=== PATIENT | female | born 1990 | race Caucasian/White ===

== ENCOUNTER 2025-06-20 17:53 | Emergency (ER) | payer OTHER, SELFPAY ==
--- OUTSIDE RECORDS SUMMARY | 2005-06-22 15:23 | XMS_ITS | Encounter Summary ---
Author Organization [facility] Address [address] [place] [address] Care Team Providers Care Bag Machine Operator Helper Name Role Phone Unavailable Primary Care Provider Unavailabl e Encounter Details Date Type Department Care Team (Late st Contact Info) Description 06/22/2005 15:23 EDT [place] [facility] [place] [address] [place] [address] Calrissa Levin PA-C [address] [place] [phone] Social History Tobacco Use Types Packs/Day Years Used Date Smoking Tobacco: Never Smokeless Tobacco: Never Alcohol Use Standard Drinks/Week Comments Yes 0 (1 standard drink = 0.6 oz pur e alcohol) rare Humiliation, Afraid, Rape, and Kick questionnair e Answer Date Recorded Within the last year, have y ou been afraid of your partner or ex-partner? No 02/03/2021 Within the last year, have y ou been humiliated or emotionally abused in other ways by your partner or ex-partner? Patient declined 02/03/2021 Within the last year, have y ou been kicked, hit, slapped, or otherwise physically hurt by your partner or ex-partner? No 02/03/2021 Within the last year, have y ou been raped or forced to have any kind of sexual activity by your partner or ex-partner? No 02/03/2021 AUDIT-C Answer Date Recorded Q1: How often do you have a drink containing alc ohol? 2-4 times a month 02/03/2021 Q2: How many drinks containi ng alcohol do you have on a typical day when you are drinking? 1 or 2 02/03/2021 Q3: How often do you have si x or more drinks on one occasion? Never 02/03/2021 Overall Financial Resource Strain (CARDIA) Answe r Date Recorded How hard is it for you to pa y for the very basics like food, housing, medical care, and heating? Not hard at all 04/09/2023 PHQ-2 Answer Date Recorded PHQ-2 SUBTOTAL 0 04/09/2023 Exercise Vital Sign Answer Date Recorde d On average, how many days pe r week do you engage in moderate to strenuous exercise (like a brisk walk)? 2 days 02/03/2021 On average, how many minutes do you engage in exercise at this level? 30 min 02/03/2021 Hunger Vital Sign Answer Date Recorded Within the past 12 months, y ou worried that your food would run out before you got the money to buy more. Never true 04/09/20 23 Within the past 12 months, t he food you bought just didn't last and you didn't have money to get more. Never true 04/09/2023 PRAPARE - Transportation Answer Date Re corded In the past 12 months, has l ack of transportation kept you from medical appointments or from getting medications? No 03/20 In the past 12 months, has l ack of transportation kept you from meetings, work, or from getting things needed for daily living? No 04/09/2023 Housing Stability Vital Sign Answer Raciel e Recorded In the last 12 months, was t here a time when you were not able to pay the mortgage or rent on time? No 04/09/2023 In the last 12 months, how many places have you lived? 1 04/09/2023 In the last 12 months, was t here a time when you did not have a steady place to sleep or slept in a detention (including now)? No 04/09/2023 Interpersonal Safety Answer Date Record ed How often does anyone, romina grier family, hit, punch or physically hurt you? Never 04/09/2023 How often does anyone, inclu ding family, insult, scream, curse or threaten to hurt you? Never 04/09/2023 Education Answer Date Recorded What is the highest level of school you have completed or the highest degree you have received? Master's degree (e.g., MA, MS, Candice, MEd, FOURDRINIER TENDER, KI) 02/03/2021 Comments No Sex and Gender Information Value Date Recorded Sex Assigned at Female 10/14/2019 20:36 EST Legal Sex Female 17:55 EST Gender Identity Female 10/12/2019 9:28 EST Sexual Orientation Straight 10/14/2019 20 :36 EST Occupation Industry Job Start Date Job End Date Not on file Not on file Not on file Not on file COVID-19 Exposure Response Date Recorded In the last month, have you been in contact with someone who was confirmed or suspected to have Coronavirus / COVID-19? No / Unsure 04/09/2020 11:20 EDT documented as of this encounter Functional Status documented as of this encounter Plan of Treatment Upcoming Encounters Date Type Department Care Team (Late st Contact Info) Description 10/24/2025 15:15 EST Office Visit [address] [address] Leigh Almonte MD [address] [place] [phone] 04/10/2026 15:45 EDT Office Visit [address] [address] Leigh Almonte MD [address] [place] [phone] documented as of this encounter Goals Goal Patient Goal Type Associated Problems Recent Progress Patient-Stated? Author Healthy Eating General Yes Ewelina Gray, RD Note: Healthy Eating Goal: Consume 4-6 small meals each day. Confidence level (1= Not very confident; 10 = Very confident): 8 Barriers: None documented as of this encounter Visit Diagnoses Not on filedocumented in this encounter
--- OUTSIDE RECORDS SUMMARY | 2006-01-10 14:36 | XMS_ITS | Encounter Summary ---
Author Organization [facility] Address [address] [place] [address] Care Team Providers Care Senior Administrator Support Name Role Phone Unavailable Primary Care Provider Unavailabl e Encounter Details Date Type Department Care Team (Late st Contact Info) Description 01/10/2006 14:36 EDT Hospital Encounter [facility] [address] [place] [address] Mike Means MD Social History Tobacco Use Types Packs/Day Years [...] place to sleep or slept in a care home (including now)? No 04/09/2023 Interpersonal Safety Answer Date Record ed How often does anyone, romina grier family, hit, punch or physically hurt you? Never 04/09/2023 How often does anyone, romina grier family, insult, scream, curse or threaten to hurt you? Never 04/09/2023 Education Answer Date Recorded What is the highest level of school you have completed or the highest degree you have received? Master's degree (e.g., MA, MS, Candice, MEd, ASPHALT LAYER, KI) 02/03/2021 Comments No Sex and Gender [...] Info) Description 10/24/2025 15:15 EST Office Visit [facility] [address] [place] [address] Leigh Almonte MD [address] [place] [phone] 04/10/2026 15:45 EDT Office Visit [facility] [address] [place] [address] Leigh Almonte MD [address] [place] [phone] documented as of this encounter Goals [...]
--- OUTSIDE RECORDS SUMMARY | 2006-06-07 15:36 | XMS_ITS | Encounter Summary ---
Author Organization [facility] Address [address] [place] [address] Care Team Providers Care Chemical Analyst Name Role Phone Unavailable Primary Care Provider Unavailabl e Encounter Details Date Type Department Care Team (Late st Contact Info) Description 06/07/2006 15:36 EDT Hospital Encounter [address] [address] Samuel Armstrong MD [address] [place] [phone] Anabel Barakat MD [address] [place], [place] [address] Social History Tobacco Use Types Packs/Day Years [...] place to sleep or slept in a assisted (including now)? No 04/09/2023 Interpersonal Safety Answer Date Record ed How often does anyone, inclu marvel family, hit, punch or physically hurt you? Never 04/09/2023 How often does anyone, inclu marvel family, insult, scream, curse or threaten to hurt you? Never 04/09/2023 Education Answer Date Recorded What is the highest level of school you have completed or the highest degree you have received? Master's degree (e.g., MA, MS, Candice, MEd, BLUEPRINT READER, KI) 02/03/2021 Comments No Sex and Gender [...] Info) Description 10/24/2025 15:15 EST Office Visit [facility] [address] [place] [address] Leigh Almonte MD [address] [place] [phone] 04/10/2026 15:45 EDT Office Visit [address] [address] Leigh Almonte MD [address] [place] [phone] documented as of this encounter Goals Goal Patient Goal Type Associated Problems Recent Progress Patient-Stated? Author Healthy Eating General Yes Ewelina Gray, RD Note: Healthy Eating Goal: Consume 4-6 small meals each day. Confidence level (1= Not very confident; 10 = Very confident): 8 Barriers: None documented as of this encounter Procedures Procedure Name Priority Date/Time Associated Diagnosis Comments COMPLETE BLOOD COUNT AND DIFFERENTIAL Routine 06/07/2006 16:59 EDT ALT Routine 06/07/2006 16:59 EDT AST Routine 06/07/2006 16:59 EDT TSH Routine 06/07/2006 16:59 EDT documented in this encounter Results * TSH (06/07/2006 16:59 EDT) Pathologist [facility] TSH 0.51 0.35 - 5.00 uIU/mL [facility] 06/07/2006 16:5 9 EDT 06/07/2006 17:09 EDT us Samuel Armstrong MD CHEMISTRY & BLOOD GAS OR DERABLES Final Result [facility] [address] [place] [address] * HEMAGRAM AND DIFFERENTIAL (06/07/2006 16:59 EDT) Pathologist [facility] WBC 7.52 4.5 - 13.0 K/cmm [facility] RBC 4.59 4.10 - 5.10 M/cmm [facility] Hemoglobin 14.4 12.0 - 16.0 gm/dl [facility] HCT 41.5 36.0 - 46.0 % [facility] MCV 91 78 - 102 fl [facility] MCH 31.4 pg [facility] MCHC 34.8 gm/dl [facility] PLT 277 156 - 312 K/cmm [facility] RDW-CV 11.5 % [facility] Comment:Performed at [facility], [place], [place] % Neutrophils 55.7 % [facility] % Lymphocytes 35.8 % [facility] % Monocytes 5.7 % [facility] % Eosinophils 1.6 % [facility] % Basophils 1.2 % [facility] ABS Neutrophils 4.18 K/cmm [facility] ABS Lymphs 2.69 K/cmm [facility] ABS Monocytes 0.43 K/cmm [facility] Eosinophils 0.12 K/cmm [facility] ABS Basophils 0.09 K/cmm [facility] Type of Diff: Automated [facility] 06/07/2006 16:5 9 EDT 06/07/2006 17:09 EDT us Samuel Armstrong MD PACKAGES & DNA PROBE ORD ERABLES Final Result Performing Organization Address City/[facility]/ZIP Co de Phone Number [facility] [address] [place] [address] * AST (06/07/2006 16:59 EDT) AST 19 16 - 38 U/L [facility] Comment:Performed at [facility] [employer] [facility], [place], [place] 06/07/2006 16:5 9 EDT 06/07/2006 17:09 EDT us Samuel Armstrong MD CHEMISTRY & BLOOD GAS OR DERABLES Final Result Performing Organization Address [facility] Co de Phone Number [facility] [address] [place] [address] * ALT (06/07/2006 16:59 EDT) ALT 21 5 - 30 U/L [facility] Comment:Performed at [facility] [place] 06/07/2006 16:5 9 EDT 06/07/2006 17:09 EDT us Samuel Armstrong MD CHEMISTRY & BLOOD GAS OR DERABLES Final Result Performing Organization Address [facility]/ZIP Co de Phone Number [facility] [address] [place] [address] documented in this encounter Visit Diagnoses Not on filedocumented in this encounter
--- OUTSIDE RECORDS SUMMARY | 2006-06-10 15:54 | XMS_ITS | Encounter Summary ---
Author Organization [facility] Address [address] [place] [address] Care Team Providers Care American Sign Language Interpreter Name Role Phone Unavailable Primary Care Provider Unavailabl e Encounter Details Date Type Department Care Team (Late st Contact Info) Description 06/10/2006 15:54 EDT Hospital Encounter [facility] [place] [address] [place], [place] [address] Oseas Moise MD [address] [facility] [address] [place] [phone] Social History Tobacco Use Types Packs/Day Years [...] place to sleep or slept in a snf (including now)? No 04/09/2023 Interpersonal Safety Answer [...] Master's degree (e.g., MA, MS, Candice, MEd, PACKAGING DESIGNER, KI) 02/03/2021 Comments No Sex and Gender [...] Info) Description 10/24/2025 15:15 EST Office Visit [address] [address] Leigh Almonte MD [address] [place] [phone] 04/10/2026 15:45 EDT Office Visit [address] [address] Leigh Almonte MD [address] [place] [phone] documented as of this encounter Goals Goal Patient Goal Type Associated Problems Recent Progress Patient-Stated? Author Healthy Eating General Yes Ewelina Gray RD Note: Healthy Eating Goal: Consume 4-6 small meals each day. Confidence level (1= Not very confident; 10 = Very confident): 8 Barriers: None documented as of this encounter Visit Diagnoses Not on filedocumented in this encounter
--- OUTSIDE RECORDS SUMMARY | 2006-07-07 10:09 | XMS_ITS | Encounter Summary ---
Author Organization [facility] Address [address] [place] [address] Care Team Providers Care Tape Cutter Name Role Phone Unavailable Primary Care Provider Unavailabl e Encounter Details Date Type Department Care Team (Late st Contact Info) Description 07/07/2006 10:09 EDT [place] [facility] [place] [address] [place] [address] Rima Azul, TYSON [address] [phone] Social History Tobacco Use Types Packs/Day Years [...] place to sleep or slept in a group home (including now)? No 04/09/2023 Interpersonal Safety [...] Master's degree (e.g., MA, MS, Candice, MEd, SLAT BASKET TOP MAKER, KI) 02/03/2021 Comments No Sex and Gender [...] Info) Description 10/24/2025 15:15 EST Office Visit [address] [address] Leigh Almonte MD [address] [place] [phone] 04/10/2026 15:45 EDT Office Visit [address] [address] Leigh Almonte MD [address] [place] [phone] documented as of this encounter Goals [...]
--- OUTSIDE RECORDS SUMMARY | 2006-08-08 11:51 | XMS_ITS | Encounter Summary ---
Author Organization [facility] Address [address] [place] [address] Care Team Providers Care Bean Picker Name Role Phone Unavailable Primary Care Provider Unavailabl e Encounter Details Date Type Department Care Team (Late st Contact Info) Description 08/08/2006 10:51 EST Hospital Encounter [facility] [place] [facility] [address] [place] [address] Shlomo Weathers MD [address] [place] [phone] Social History Tobacco Use Types Packs/Day Years [...] place to sleep or slept in a chcf (including now)? No 04/09/2023 Interpersonal Safety Answer [...] Master's degree (e.g., MA, MS, Candice, MEd, ASBESTOS BRAKE LINING FINISHER, KI) 02/03/2021 Comments No Sex and Gender [...] Info) Description 10/24/2025 15:15 EST Office Visit [address] [address] Leigh Almonte MD [address] [place] [phone] 04/10/2026 15:45 EDT Office Visit [address] [address] Leigh Almonte MD [address] [place] [phone] documented as of this encounter Goals [...]
--- OUTSIDE RECORDS SUMMARY | 2006-10-04 16:41 | XMS_ITS | Encounter Summary ---
Author Organization [facility] Address [address] [place] [address] Care Team Providers Care 7Th Grade Teacher Name Role Phone Unavailable Primary Care Provider Unavailabl e Encounter Details Date Type Department Care Team (Late st Contact Info) Description 10/04/2006 15:41 EST Hospital Encounter [facility] [place] [facility] [address] [place] [address] Nette Hays MD Social History Tobacco Use Types Packs/Day [...] place to sleep or slept in a skilled nursing (including now)? No 04/09/2023 Interpersonal Safety Answer [...] Master's degree (e.g., MA, MS, Candice, MEd, RN FORENSIC, KI) 02/03/2021 Comments No Sex and Gender [...] Info) Description 10/24/2025 15:15 EST Office Visit [address] [address] Leigh Almonte MD [address] [place] [phone] 04/10/2026 15:45 EDT Office Visit [address] [address] Leigh Almonte MD [address] [place] [phone] documented as of this encounter Goals Goal Patient Goal Type Associated Problems Recent Progress Patient-Stated? Author Healthy Eating General Yes Ewelina Gray, RD Note: Healthy Eating Goal: Consume 4-6 small meals each day. Confidence level (1= Not very confident; 10 = Very confident): 8 Barriers: None documented as of this encounter Procedures Procedure Name Priority Date/Time Associated Diagnosis Comments INFLUENZA A AND B ANTIGEN DETECTION Routine 10/04/2006 16:58 EST COMPLETE BLOOD COUNT Routine 10/04/2006 16:58 EST BASIC METABOLIC PANEL (BMP) Routine 10/04/2006 16:58 EST documented in this encounter Results * INFLUENZA A AND B ANTIGEN DETECTION (10/04/2006 16:58 EST) Specimen Description Nares Specimen submitted on a swab [facility] Result Negative for Influenza A and B antigen. Rapid tests provide quick results but suffer poor sensitivity and unsatisfactory specificity. If accurate results are required and further testing is clinically indicated, please submit a specimen for viral culture. [facility] Report Status Final [id number] [facility] 10/04/2006 16:5 8 EST 10/04/2006 19:55 EST Nette Hays MD [facility] Final Result Performing Organization Address [facility] Co de Phone Number [facility] [address] [place] [address] * HEMAGRAM (10/04/2006 16:58 EST) WBC 5.53 4.5 - 13.0 K/cmm [facility] RBC 4.36 4.10 - 5.10 M/cmm [facility] Hemoglobin 13.5 12.0 - 16.0 gm/dl [facility] HCT 39.2 36.0 - 46.0 % [facility] MCV 90 78 - 102 fl [facility] MCH 31.0 pg [facility] MCHC 34.4 gm/dl [facility] PLT 230 156 - 312 K/cmm [facility] RDW-CV 13.4 % [facility] 10/04/2006 16:5 8 EST 10/04/2006 19:22 EST Nette Hays MD HEMATOLOGY & PF4 ORDERABLES Final Result Performing Organization Address [facility] Co de Phone Number [facility] [address] [place] [address] * BASIC METABOLIC PANEL (10/04/2006 16:58 EST) Sodium 139 136 - 145 mEq/L [facility] Potassium 3.9 3.6 - 5.2 mEq/L [facility] Chloride 104 96 - 110 mEq/L [facility] CO2 27 24 - 32 mEq/L [facility] BUN 10 8 - 21 mg/dl [facility] Creatinine 0.69 0.6 - 1.2 mg/dl [facility] GFR, Calculated Age <18 ml/min/1.7 3m2 [facility] Calcium 9.2 8.5 - 10.5 mg/dl [facility] Calculated Calcium 9.1 8.5 - 10.5 mg/dl [facility] Glucose, Serum 90 70 - 100 mg/dl [facility] Fasting? No [facility] 10/04/2006 16:5 8 EST 10/04/2006 19:22 EST us Nette Hays MD CHEMISTRY & BLOOD GAS ORDER DILAN Final Result [facility] [address] [place] [address] documented in this encounter Visit Diagnoses Not on filedocumented in this encounter
--- OUTSIDE RECORDS SUMMARY | 2006-11-11 17:01 | XMS_ITS | Encounter Summary ---
Author Organization [facility] Address [address] [place] [address] Care Team Providers Care Inclusion Manager Name Role Phone Unavailable Primary Care Provider Unavailabl e Encounter Details Date Type Department Care Team (Late st Contact Info) Description 11/11/2006 16:01 [facility] Hospital Encounter [facility] [place] [facility] [address] [place] [address] Nette Hays MD Social History Tobacco Use [...] place to sleep or slept in a fci (including now)? No 04/09/2023 Interpersonal Safety Answer [...] Master's degree (e.g., MA, MS, Candice, MEd, TEACHERS AIDE, KI) 02/03/2021 Comments No Sex and Gender [...] Info) Description 10/24/2025 15:15 EST Office Visit [address] [address] Leigh Almonte MD [address] [place] [phone] 04/10/2026 15:45 EDT Office Visit [address] [address] Leigh Almonte MD [address] [place] [phone] documented as of this encounter Goals [...]
--- OUTSIDE RECORDS SUMMARY | 2007-01-11 08:32 | XMS_ITS | Encounter Summary ---
Author Organization [facility] Address [address] [place] [address] Care Team Providers Care Youth Worker Name Role Phone Unavailable Primary Care Provider Unavailabl e Encounter Details Date Type Department Care Team (Late st Contact Info) Description 01/11/2007 8:32 EDT Hospital Encounter [facility] [address] [place] [address] Clarissa Levin PA-C [address] [place] [phone] Social History Tobacco Use Types Packs/Day [...] place to sleep or slept in a half-way (including now)? No 04/09/2023 Interpersonal Safety Answer [...] Master's degree (e.g., MA, MS, Candice, MEd, MEDIA DIRECTOR, KI) 02/03/2021 Comments No Sex and Gender [...] Info) Description 10/24/2025 15:15 EST Office Visit [address] [address] Leigh Almonte MD [address] [place] [phone] 04/10/2026 15:45 EDT Office Visit [address] [address] Leigh Almonte MD [address] [place] [phone] documented as of this encounter Goals [...]
--- OUTSIDE RECORDS SUMMARY | 2008-09-09 14:24 | XMS_ITS | Encounter Summary ---
Author Organization [facility] Address [address] [place] [address] Care Team Providers Care Enrobing Machine Feeder Name Role Phone Unavailable Primary Care Provider Unavailabl e Encounter Details Date Type Department Care Team (Late st Contact Info) Description 09/09/2008 13:24 EST Hospital Encounter [facility] [address] [place] [address] Mike Means MD Social History Tobacco Use [...] Master's degree (e.g., MA, MS, Candice, MEd, FLIGHT DIRECTOR, KI) 02/03/2021 Comments No Sex and [...] Info) Description 10/24/2025 15:15 EST Office Visit [facility] [address] [place] [address] Leigh Almonte MD [address] [place] [phone] 04/10/2026 15:45 EDT Office Visit [facility] [address] [place], [place] [id number] Leigh Almonte MD [address] [place] [phone] documented as of this encounter Goals Goal Patient Goal Type Associated Problems Recent Progress Patient-Stated? Author Healthy Eating General Yes Ewelina Gray, RD Note: Healthy Eating Goal: Consume 4-6 small meals each day. Confidence level (1= Not very confident; 10 = Very confident): 8 Barriers: None documented as of this encounter Procedures Procedure Name Priority Date/Time Associated Diagnosis Comments HPV DETECTION, HIGH RISK TYPES Routine 04/28/2009 10:29 EDT CYTOPATHOLOGY Routine 04/28/2009 0:00 EDT documented in this encounter Results * HUMAN PAPILLOMA VIRUS DNA TEST (04/28/2009 10:29 EDT) Specimen Description Cervix, ThinPrep vial [facility] Result Negative for HPV types 16, 18, 31, 33, 35, 39, 45, 51, 52, 56, 58, 59, and 68. [facility] Report Status Final 05/07/2009 [facility] 04/28/2009 10:2 9 EDT 05/02/2009 10:29 EDT us Mary Ann MEHTA MICROBIOLOGY - GENERAL ORDERAB LES Final Result [facility] [address] [place] [address] * CYTOPATHOLOGY (04/28/2009 0:00 EDT) Pathology Report: CYTOPATHOLOGY REPORT Reports generated via electronic interface contain original data; however they are lacking the format of the original report. Caution should be taken when reading/interpreti ng unformatted reports. Name: BRI MCARTHUR : 1990 (Age: 19) F Collect Date: 04/28/2009 Location: [facility] Receive Date: 04/29/2009 Provider: MARY ANN MEHTA Copy to: Specimen/Source: Pap Test, Endocervix, ThinPrep Imaging System with manual evaluation Last Menstrual Period: 04/13/09 Other: Additional clinical information: menses x16 d HPVDX - HPV testing requested regardless of diagnosis on current ThinPrep Pap test. SPECIMEN ADEQUACY Satisfactory for Evaluation - transformation zone component absent - scant squamous epithelial component secondary to excessive blood GENERAL CATEGORIZATION Negative for Intraepithelial Lesion or Malignancy INTERPRETATION Fungal organisms present morphologically consistent with Kenzie species. Document reviewed and electronically signed by: RAUL Bob(ASCP) Report Date: 05/01/2009 13:54 End of Report [facility] 04/28/2009 04/29/2009 us Mary Ann MEHTA PATHOLOGY ORDERABLES Final Res ult [facility] [address] [place] [address] documented in this encounter Visit Diagnoses Not on filedocumented in this encounter
--- OUTSIDE RECORDS SUMMARY | 2025-05-23 14:30 | XMS_ITS | Encounter Summary ---
Author Organization [facility] Address [address] [place] [address] Care Team Providers Care Computer Programming Manager Name Role Phone Delmy Lynn MD Primary Care Provider [phone] Margarita Gill CNM Unavailable [phone] Seth Wong DO Unavailable [phone] Gustavo Faulkner PT Unavailable [phone] Reason for Visit * Reason Comments PT Treatment * PT/OT/ST (Routine) - Authorized Specialty Diagnoses / Procedures Referred By Darlene lowe Referred To Contact Physical Therapy Diagnoses Dyspareunia in female Seth Wong DO [address] [place] [address] Phone: tel: fax: Gustavo Faulkner, PT [address] [place] [address] Phone: tel: fax: Referral ID Status Reason Start Date Expiration Date V isits Requested Visits Authorized [id number] Authorized 10/29/2024 08/02/2025 10 10 Encounter Details Date Type Department Care Team (Late st Contact Info) Description 05/23/2025 2:30 PM EDT Physical Therapy [facility] [address] [phone] Seth Wong DO [address] [place] [address] Gustavo Faulkner, PT [address] [facility] [place] [address] Social History Tobacco Use Types Packs/Day Years Used Date Smoking Tobacco: Never Humiliation, Afraid, Rape, and Kick questionnair e Answer Date Recorded Within the last year, have y ou been afraid of your partner or ex-partner? No 06/19/2024 Within the last year, have y ou been humiliated or emotionally abused in other ways by your partner or ex-partner? No Within the last year, have y ou been kicked, hit, slapped, or otherwise physically hurt by your partner or ex-partner? No 06/19/2024 Within the last year, have y ou been raped or forced to have any kind of sexual activity by your partner or ex-partner? No 06/19/2024 AUDIT-C Answer Date Recorded Q1: How often do you have a drink containing alc ohol? 2-4 times a month 06/05/2024 Q2: How many drinks containi ng alcohol do you have on a typical day when you are drinking? 1 or 2 06/05/2024 Q3: How often do you have si x or more drinks on one occasion? Less than monthly 06/05/2024 PHQ-2 Answer Date Recorded Patient Health Questionnaire-2 Score 0 06/11/2025 Hunger Vital Sign Answer Date Recorded Within the past 12 months, y ou worried that your food would run out before you got the money to buy more. Never true 05/02/20 25 Within the past 12 months, t he food you bought just didn't last and you didn't have money to get more. 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 [facility] [address] [address] Dept: [phone] Dept Loc: [phone] Progress Report OUTPATIENT THERAPY REPORT Name: Homa Mcarthur : 1990 Date: 06/18/2025 Referring Practitioner: Seth Wong DO Family Physician: Delmy Lynn MD Therapist: Gustavo Faulkner, PT Pt came into the office, masked, to cx her PF Rehab appt for tomorrow & for next wk, as there has been an outbreak of COVID in their office. She reports she called, but no one called back within 30' so she came into the office. It would have been more lane for her to call & just leave that message, but thankfully, she was masked. Pt is scheduled to return 07-01-25. Gustavo Valencia PF PT PRESCRIPTION RENEWAL Please complete and return one copy to OT/PT office Check One: Discontinue Program Continue Program Frequency and duration: Expected Date of Return to Work: Date: Signature: * Gustavo Faulkner, PT - 05/23/2025 2:34 PM EDT Images from the original note were not included. [facility] [address] [address] Physical Therapy Treatment Note Treatment Diagnosis: Dyspareunia in Female Visit count: #6 Patient Verification: full name and date of Assessment and Plan Assessment: Homa's dyspareunia is improving & I truly feel it is because of her (+) mental space with her new partner. My internal was still uncomfortable, but there was definite decreased tension. Skilled PF Rehab is justified to hold until she will be alone in her apt to start assistive device use. Plan: See if she got her dilators, if that's what she chose, & train in use, during manual Rx as provided. PLAN FREQUENCY: 1x/wk, not returning until 06-19-25 PLAN DURATION: 4 visits Time Spent & Charges 66339 - Manual therapy 30 minutes 12488 - Self-care 15 minutes Total Timed Minutes: 45 Total Untimed Minutes: 0 Total Treatment Minutes: 45 Subjective Subjective report: Pt reports she did not get any devices as of this point, as her living arrangement has changed & she has a roommate for ~ 3 more wks, so she doesn't have the privacy to use dilators or a PTW. Pain Location 1: Dyspareunia (chronic (Pt reports that from 17yo-29yo, she enjoyed intercourse, but since there has been issues)). : Pt reports that with her new partner, she feels like she is in a betterspace mentally, so she did not feel the px, though she feels like the problem is still there; 1-2/10 on px scale & 1/4 on the Marinoff scale. Quality: Remote awareness. Aggravating factor(s): Coitus. Relieving factor(s): Only partaking 1x/wk so her body has time to recover. Frequency: Coital interludes. Objective Therapeutic Exercise Pt conts strength training M-W-, & PT for LB/hip/knee T-Th & then hikes/walking btwn. Homa reports she did her new stretches for a few times after our last visit, but forgot when she moved into her new living arrangement. We reviewed. Therapeutic Activity SELF CARE MANAGEMENT: Includes all current PF info. Homa felt that she finally realized, though her last partner was understanding about her dyspareunia & not pressuring, that there is a mind-body connection with intercourse. I educated that there is a big connection btwn how your body responds to your emotions, & can manifest as pelvic px during intimacy if there is not that true connection. Pt denies bladder/bowel dysfunction, as she has not had any return of UTI-like sxs, post coitus. Homa has not used the coconut oil, as her roommate is always present & bathroom is really small. However, when I used it at our last visit, pt reports intercourse that night, with a (+) difference. Homa has backed off on a lot of her activities over the past 2 wks, so the calf cramps have eased. Pt did not get her repeat urinalysis because she started her menses. Pt reports she will order probably a dilator set, & maybe one other thing, when it gets closer to her roommate leaving. Because of this, we agreed it was best for her to change her appts to accommodate availability to complete her work with the assistive device(s). Manual Therapy Denies as pt is on Tri-Sprintec. Pt gave verbal consent for vaginal manual with chaperonedeclined. Perineal Massage: STMs/MFR B bulbocavernosus, ischiocavernosus, B hip adductors, around ischial tuberosities & into obturator internus accessed externally with need for trigger point mob here again r/t spasm. Modified Luther's: B superficial & deep transverse perineals, compressor urethras, pubovaginalis, puborectalis, pubococcygeus, iliococcygeus, obturator internus, & ATLA's Gentle Pressure Releases: B pubococcygeus, iliococcygeus, obturator internus, & all with decreased tightness from past visits, but pt feeling like things were more irritated & swollen, with Rworse than L. Homa left reporting that the sharpness was less at the end than when I 1st started internal work, grading at 4/10. Modalities MH to abs during manual techs. Patient Education/Home Exercise Program Prescription Corrective Exercise provided by PT for HEP: Added 05-08-25, Frog/butterfly stretch Please refer throughout note for PT ED. Short Term Goals: Goals within: 0 visits Goal 1 Px during/post PF Rehab no >4/10, 05-23-25 Status: Met Note: 05-23-25 Goal 2 R obturator internus musc will relax to assist in decreasing L hip tendonitis, so she can try some running/dancing, w/o px > 3-4/10, 05-23-25 Status: Met Note: 05-23-25, as pt has done some dancing in the recent past. Goal 3 Pt will attempt 1 coital interlude & experience px no > 5-6/10, & on Marinoff scale no > 2/4, 05-23-25 Status: Met Note: 05-23-25 Toe Closing Machine Tender Goals: Goals within: 4 visits Goal 1 Pt's PFMs will length to start minimal strengthening with Kegels to assist PF & core stability for future activities she wants to perform, 07-08-25 Note: LTG achievement dates were changed today to reflect schedule changes Goal 2 Dyspareunia no > 2-3/10 on the pain scale & 1/4 on the Marinoff scale, I'ly & safely using an assistive device for px control & vaginal desensitization, 07-08-25 Goal 3 Pt will no longer have L hip tendonitis px > 1/10 all ADLs, so pt can run reasonable distances for now, & begin ballet class,07-08-25 documented in this encounter Plan of Treatment Upcoming Encounters Date Type Department Care Team (Late st Contact Info) Description 07/01/2025 9:00 AM EDT Physical Therapy [facility] [address] [phone] Seth Wong, [address] [place] [address] Gustavo Faulkner, PT [address] [place] [address] 07/08/2025 9:00 AM EDT Physical Therapy [facility] [address] [phone] Seth Wong, [address] [place] [address] Gustavo Faulkner, PT [address] [place] [address] 07/18/2025 7:30 AM EDT Office Visit [facility] Primary Care and Walk-In Care [address] [phone] Delmy Lynn MD [address] [place] [phone] 10/18/2025 9:00 AM EST Initial consult [facility] Obstetrics and Gynecology [address] [place] [address] Sasha Spivey MD [address] [place] [address] [place] [address] documented as of this encounter Visit Diagnoses Diagnosis Dyspareunia in female- Primary documented in this encounter Care Teams Computer Programming Manager Relationship Specialty Start Date End Date Delmy Lynn MD [address] [place] [phone] PCP - General Family Medicine 12/14/23 Margarita Gill CNM [place] [place] [address] [employer] Certified Nurse [employer] 08/23/24 Seth Wong DO [address] [address] Physician Physical Medicine and Rehab 09/20/24 Gustavo Faulkner, PT [address] [place] [address] Physical Therapist Physical Therapy 05/01/25 documented as of this encounter
--- NOTE | 2025-06-20 | ECG_ITS ---
Test Reason : CP Blood Pressure : */* mmHG Vent. Rate : 93 BPM Atrial Rate : 93 BPM P-R Int : 106 ms QRS Dur : 68 ms QT Int : 346 ms P-R-T Axes : 62 55 19 degrees QTcB Int : 430 ms Sinus rhythm with short DE Nonspecific ST abnormality Borderline ECG No previous ECGs available Referred By: Generic ED Physician Electronically Signed By: BUD CHRISTIANSON
--- NOTE | ~2025-06-20 | XR_ITS ---
CLINICAL HISTORY: Pneumonia. Coughing 1 view chest x-ray Comparison: None provided Findings: Lungs are clear without acute infiltrates. No pneumothorax. Heart size normal. No acute bony abnormalities. Midthoracic fusion hardware. Impression: No acute processes This document has been electronically signed by: Alejo Luna MD on 06/20/2025 19:04:47
--- NOTE | ~2025-06-20 | US_ITS ---
CLINICAL HISTORY: ? dvt Bilateral lower extremity venous duplex ultrasound. Color and spectral waveform analysis. Comparison: None provided Findings: Deep veins are compressible with flow and augmentation. No popliteal cyst. No significant adenopathy. Impression: No evidence for DVT This document has been electronically signed by: Alejo Luna MD on 06/20/2025 21:39:43
--- NOTE | ~2025-06-20 | CT_ITS ---
CLINICAL HISTORY: Right-sided chest pain with increased heart rate s --- Additional Notes or Special Instructions: Patient is . Positive D-dimer CT angiography chest with contrast. 3D Postprocessing. Comparison: None provided Findings: Respiratory motion artifact degrades some of the provided images slightly limiting interpretation. The heart is normal size. RV/LV ratio is normal. Unremarkable thoracic aorta and great vessels. No aneurysm. No acute pulmonary embolus. The visualized thyroid and mediastinum are unremarkable. No consolidation or effusion. The upper abdomen is unremarkable. Keyshawn and pedicle screw fusion extends from T6-T8. IMPRESSION: 1. No pulmonary embolus. This document has been electronically signed by: Dillon Heath MD, PHD on 06/21/2025 03:35:57
[2025-06-20 18:22] VITALS: BP 113/72; PULSE 106; RESP 20; TEMP 37; O2SAT 98; BMI 17.1
--- NOTE | 2025-06-20 18:29 | PC.NURSE ---
Used [facility] on [address] in [facility], not able to add to chart.
--- NOTE | 2025-06-20 18:31 | ED_ITS ---
HPI - Chest Pain General Chief Complaint: Chest Pain Stated Complaint: chest pain Time Seen by Provider: 06/20/25 19:42 History of Present Illness HPI narrative: Patient is a 35-year-old female presents today with having right-sided chest pain tachycardia. Generalized malaise. Patient complaining of chest pain that is worse with deep inspiration on the right side. Has a history of traveling from [place] drove for 5 hours today. Then the chest pain started. Also a history of being on control. No leg swelling. No history of blood clots in the past. Did have chest pain that is worse with deep breath. No history of diabetes no history of hypertension no history of high cholesterol no history of smoking no history of [place] no family history of [place]. patient's last menstrual period was just now. Patient from home. No focal weakness. No leg swelling. No history of blood clots. No history of cancer. Related Data Allergies Allergy/AdvReac Type Severity Reaction Status Date / Time doxycycline Allergy Dizziness Verified 06/20/25 18:23 minocycline Allergy Dizziness Verified 06/20/25 18:23 Review of Systems 2 Review of Systems: Positive chest pain on the right side Yes all other systems are reviewed and are negative [facility] Past Medical History Attestation statement: The following information was validated with the patient. Social History Social History Advance Directives: No Advance Directives Information Provided: No Physical Exam 2 Exam: Exam: Appearance: Alert. Oriented X3. No acute distress. Eyes: Pupils equal, round and reactive to light. ENT: Pharynx normal. Neck: Normal inspection. Neck supple. No lymph nodes noted. No crepitus CVS: Normal heart rate and rhythm. Pulses normal. Normal S1 and S2 Respiratory: No respiratory distress. Breath sounds normal. No Wheezing. No rales Abdomen: Soft and nontender. No rigidity. No distention. good BS x4 Skin: Skin warm and dry. Normal skin color. Normal skin turgor. Extremities: No lower extremity edema. Neurovascular intact to all extremities. No Lacerations. No Rash Neuro: Oriented X 3. No motor deficit. No sensory deficit. Moving all extermities. No slurred speech Vital Signs: Vital Signs: Last Vital Signs Temp 98.2 F 06/20/25 22:44 Pulse 105 H 06/20/25 22:44 Resp 17 06/20/25 22:44 BP 126/79 06/20/25 22:44 Pulse Ox 100 06/20/25 22:44 O2 Del Method Room Air 06/20/25 22:44 BMI result Body Mass Index 17.1 Course Course Course Narrative: RME: 35-year-old female presents to ED for chest pain. Patient recently diagnosed with URI was on antibiotics but still has having some coughing and shortness of breath. Patient denies any recent long travel or recent surgery. Labs EKG chest x-ray ordered Medical Decision Making Medical Decision Making MDM Narrative: My interpretation of patient's EKG showed a sinus rhythm heart rate is 90 WI QRS QTC normal no acute ST segment elevation. Patient well-appearing. Chest pain is atypical for ACS she is only 35 she has no significant cardiac risk factor her pain is on the right side not typical for ACS. Her enzymes are negative. In the setting of atypical history no risk factor 35 years old negative troponin patient's heart score is less than 3. Patient's labs did come back with a positive test of 24. In the setting of positive test. Patient had long distance travel is on control and complaining of chest pain that is worse with deep breath. Had a long consideration about patient's symptoms can not rule out the possibility of PE. Patient denies any leg pain. We did do a D-dimer. The D-dimer was 550. In the setting of patient being hormone level at 24. Explained to patient the risks and benefits of getting a CT angio of the chest in the setting of having chest pain that is pleuritic. The risks being risk for the fetus risks of for radiation. We did attempt to do Doppler bilateral lower extremity in the hope of finding a DVT if she has one. Doppler of the bilateral lower extremity was negative for DVT. I reviewed radiology's interpretation. After much debate and consideration. Patient agreed to getting a CT angio chest. Understood the risk of PE understood the risk of having a at a very early stage of development. Elected to have a CTA done today. Patient's case being signed out that the change of shift pending the CTA. Will do everything possible to reduce the patient's and fetus is risk Differential Diagnosis Differential Diagnoses: The differential diagnosis associated with the presentation includes PE, ACS, pneumonia pneumothorax Admission/Observation Consideration of admission/observation: Escalation of care including admission/observation considered Lab Data MDM Lab Attestation statement: I reviewed the patient's lab results. 10/02/25 18:40 06/20/25 18:40 Labs: Lab Results 06/20/25 06/20/25 Range/Units 18:40 20:20 WBC 5.3 (4.8-10.8) X10*3/uL RBC 4.25 (4.20-5.50) X10*6/uL Hgb 13.3 (12.0-16.0) g/dl Hct 39.8 (37.0-47.0) % MCV 93.6 (80.0-98.0) fL MCH 31.3 (27.0-33.0) pg MCHC 33.4 (31.0-35.0) g/dl RDW 12.4 (11.0-16.0) % Plt Count 203 (160-400) X10*3/uL MPV 8.6 L (9.4-12.3) fL Immature Gran % (Auto) 0.6 H (0.0-0.4) % Neut % (Auto) 56.9 (45-73) % Lymph % (Auto) 33.9 (20-40) % Hettinger % (Auto) 4.1 (2-11) % Eos % (Auto) 4.3 H (0-4) % Baso % (Auto) 0.2 (0-2) % Lymph # (Auto) 1.8 (1.2-4.9) X10*3/uL Hettinger # (Auto) 0.2 (0.1-1.2) X10*3/uL Eos # (Auto) 0.2 (0.0-0.4) X10*3/uL Baso # (Auto) 0.0 (0.0-0.2) X10*3/uL Abs Immat Gran (auto) 0.03 (0.00-0.03) X10*3/uL Absolute Neuts (auto) 3.0 (2.0-8.3) x10*3/uL Absolute Nucleated RBC 0.000 (0.0-0.012) X10*3/uL Nucleated RBC % (auto) 0.0 (0.0-0.2) /100WBC D-Dimer High Sensitivty 550 NG/ML Sodium 139 (135-145) mmol/L Potassium 3.7 (3.3-5.1) mmol/L Chloride 103 (96-108) mmol/L Carbon Dioxide 27 (22-29) mmol/L Anion Gap 13 (12-20) BUN 8 L (9-16) mg/dL Creatinine 0.64 (0.5-1.4) mg/dL Estim Creat Clear Calc 91.3 Estimated GFR > 60 Random Glucose 90 (60-115) mg/dL Calcium 9.3 (8.4-10.2) mg/dL Total Bilirubin 0.3 (0.0-1.0) mg/dL AST 12 (5-31) U/L ALT 13 (0-31) U/L Alkaline Phosphatase 60 (39-117) U/L Troponin I High Sens < 2.7 (<3.5-17.0) ng/L NT-Pro-B Natriuret Pep 116.9 (<300) pg/mL Total Protein 7.1 (6.5-8.0) g/dL Albumin 4.2 (3.5-5.0) g/dL Beta HCG, Quant 24 mIU/mL COVID-19 (ABIMAEL) Negative (Negative) COVID-19 Clin Com See Note Influenza Type A (PORTER) Negative (Negative) Influenza Type B (PORTER) Negative (Negative) Influenza A & B Note See Note Independent Interpretation I performed an independent interpretation of an: EKG (Sinus heart rate is 90 WI QRS QTC normal no acute ST segment elevation.) Social Determinants Patient?s care significantly limited by Social Determinants of Health including: Problems related to primary support group Discharge Plan Discharge Clinical Impression: Chest pain Print Language: Tristanian
[2025-06-20 18:48] LABS: MANUAL DIFF FLAG NO
[2025-06-20 18:49] LABS: Hematocrit 39.8 % (37.0-47.0); Hemoglobin 13.3 g/dl (12.0-16.0); Imm Gran Abs Auto 0.03 X10*3/uL (0.00-0.03); Imm Gran Pct Auto 0.6 % (0.0-0.4); Lymphocytes Absolute Auto 1.8 X10*3/uL (1.2-4.9); Mean Corpuscular HGB Conc 33.4 g/dl (31.0-35.0); Mean Corpuscular Hemoglobin 31.3 pg (27.0-33.0); Mean Corpuscular Volume 93.6 fL (80.0-98.0); NRBC Abs Auto 0.000 X10*3/uL (0.0-0.012); NRBC Pct Auto 0.0 /100WBC (0.0-0.2); Platelet Count 203 X10*3/uL (160-400); Red Blood Count 4.25 X10*6/uL (4.20-5.50); White Blood Count 5.3 X10*3/uL (4.8-10.8)
[2025-06-20 19:10] LABS: Alanine Aminotransferase 13 U/L (0-31); Albumin Level 4.2 g/dL (3.5-5.0); Alkaline Phosphatase 60 U/L (39-117); Anion Gap 13 (12-20); Aspartate Amino Transferase 12 U/L (5-31); Blood Urea Nitrogen 8 mg/dL (9-16); Calcium 9.3 mg/dL (8.4-10.2); Carbon Dioxide 27 mmol/L (22-29); Chloride 103 mmol/L (96-108); Creatinine Clr Calc Pharmacy 91.3; Estimated Glomerular Filt Rate > 60; Potassium 3.7 mmol/L (3.3-5.1); Sodium 139 mmol/L (135-145); Total Protein 7.1 g/dL (6.5-8.0)
[2025-06-20 19:12] LABS: NT Pro B Type Natriuretic Pept 116.9 pg/mL (<300)
[2025-06-20 19:14] LABS: Troponin-I High Sensitivity < 2.7 ng/L (<3.5-17.0)
[2025-06-20 19:40] VITALS: BP 122/79; PULSE 96; RESP 19; TEMP 36.9; O2SAT 100
--- OUTSIDE RECORDS SUMMARY | 2025-06-20 19:51 | XMS_ITS | Encounter Summary ---
Author Organization [facility] Address [address] [place] [address] Care Team Providers Care Deicer Inspector Electric Name Role Phone Leigh Almonte MD Primary Care Provider Leigh Almonte MD Primary Care Provider Delmy Lynn Unavailable None, Provider IT APPLICATION ADMINISTRATOR Primary Care Provider Unavaila ble Leigh Almonte MD Primary Care Provider Reason for Visit * Reason Onset Date Comments Medications Refill 12/13/2014 Encounter Details Date Type Department Care Team (Late st Contact Info) Description 12/13/2014 Refill [facility] 3rd Floor [facility] [address] [place] [address] Kvng Lee PA-C [address] [place] [phone] Medications Refill Social History Tobacco Use Types Packs/Day Years Used Date Smoking Tobacco: Never Smokeless Tobacco: Never Alcohol Use Standard Drinks/Week Comments Yes 0 (1 standard drink = 0.6 oz pur e alcohol) rare Comments No Sex and Gender Information Value Date Recorded Sex Assigned at Female 10/14/2019 20:36 EST Legal Sex Female 17:55 EST Gender Identity Female 10/12/2019 9:28 EST Sexual Orientation Straight 10/14/2019 20 :36 EST 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 Not on file Not on file 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 Patient's insurance, [facility], requires a 3 month supply in order for them to cover medication. 90 day supply with one refill loaded Will forward to Fernnada Lee. ANI MORRISSEY RN 12/13/2014 13:15 * Telephone Encounter - Thelma Graff - 12/13/2014 1231 EDT Pharmacy called and patient needs a 90 day supply and not 30 of Spironolactone. Please e-scribe a new order for Spironolactone with 270 tablets. Thelma Graff * Telephone Encounter - Ani Morrissey RN - 12/13/2014 1140 EDT Patient last seen on 11/26/14 by Fernanda Lee PA-C Next FUR: 06/03/15 Dx: Acne Refill request: spironolactone (ALDACTONE) 25 mg tablet Last prescribed: 11/26/14 Last Labs: 07/09/14 Spoke to patient. She states she is not currently , breast feeding, or experiencing any side effects for the medication. Will forward to ETHAN Cortes RN 12/13/2014 11:47 documented in this encounter Plan of Treatment Upcoming Encounters Date Type Department Care Team (Late st Contact Info) Description 10/24/2025 15:15 EST Office Visit [facility] [address] [place] [address] Leigh Almonte MD [address] [place] [phone] 04/10/2026 15:45 EDT Office Visit [facility] [address] [place] [address] Leigh Almonte MD [address] [place] [phone] documented as of this encounter Goals Goal Patient Goal Type Associated Problems Recent Progress Patient-Stated? Author Healthy Eating General Yes Ewelina Gray, OZIZE Note: Healthy Eating Goal: Consume 4-6 small meals each day. Confidence level (1= Not very confident; 10 = Very confident): 8 Barriers: None documented as of this encounter Visit Diagnoses Not on filedocumented in this encounter Discontinued Medications Medication Sig Discontinue Reason Start Date End Da te spironolactone (ALDACTONE) 25 mg tablet Sig 2 tab PO qam, 1 tab PO qhs Reorder 11/26/2014 12/13/2014 spironolactone (ALDACTONE) 25 mg tablet Sig 2 tab PO qam, 1 tab PO qhs Reorder 12/13/2014 12/13/2014 documented as of this encounter Care Teams Deicer Inspector Electric Relationship Specialty Start Date End Date Leigh Almonte MD [address] [place] [phone] PCP - General 06/24/11 02/16/21 Leigh Almonte MD [address] [place] [phone] PCP - General Family Medicine - Primary Care 09/09/23 12/04/24 None, Provider, IT APPLICATION ADMINISTRATOR PCP - General 12/05/24 01/30/25 Leigh Almonte MD [address] [place] [phone] PCP - General Family Medicine - Primary Care 01/31/25 [place] [address] 09/09/24 documented as of this encounter
--- OUTSIDE RECORDS SUMMARY | 2025-06-20 19:51 | XMS_ITS | Clinical Summary ---
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 ORDERABLES Final Result [facility] [address] [place] [address] * (ABNORMAL) POC URINALYSIS DIPSTICK (WITHOUT MICRO) (06/12/2025 2:47 PM EDT) Only the most recent of2 resultswithin the time period is included. Color, UA, POC yellow Yellow .MANU AL ENTRY (EXTERNAL LAB) Clarity, UA, POC clear Clear .MANUAL ENTRY (EXTERNAL LAB) Glucose Ur, POC Negative Negative mg/dL .MANUAL ENTRY (EXTERNAL LAB) Bilirubin, UA, POC Negative Negative mg/dL .MANUAL ENTRY (EXTERNAL LAB) Ketones Ur, POC Negative Negative mg/dL .MANUAL ENTRY (EXTERNAL LAB) Specific [place] Ur, POC 1.010 1.010 - 1.030 .MANUAL ENTRY (EXTERNAL LAB) Blood Ur, POC 2+(A) Negative .MANUA L ENTRY (EXTERNAL LAB) pH Ur, POC 7.0 5.0 - 8.0 .MANUAL ENTRY (EXTERNAL LAB) Protein (PRO), POC Negative Negative mg/dL .MANUAL ENTRY (EXTERNAL LAB) Urobilinogen Ur, POC 0.2(A) 0.2 - 1.0 U/dL .MANUAL ENTRY (EXTERNAL LAB) Nitrite Ur, POC Negative Negative, Inconclusive, Invalid, Trace, 30 , 100 , 500 , 1+, 2+, Approx 50, Approx 250, Approx 10, 300 , >=1000, Unable to interpret the urine dipstick reactions due to color interference of the specimen., [facility] .MANUAL ENTRY (EXTERNAL LAB) Leukocytes, UA, POC 1+(A) Negative .MANUAL ENTRY (EXTERNAL LAB) Urine 06/12/2025 2:47 PM EDT us Harshamurphy Peralta PAC POINT OF CARE TEST ENT ER/EDIT ORDERABLES Final Result .MANUAL ENTRY (EXTERNAL LAB) Please Refer to Scanned Lab Report * XR KNEE LEFT 3 VW (06/11/2025 9:53 AM EDT) Anatomical Region Laterality Modality Lower Extremity, Thigh, Knee, Leg Computed Radiography 06/11/2025 9:45 AM EDT Narrative 06/11/2025 10:53 AM EDT EXAM: XR KNEE LEFT 3 VW INDICATION: chronic medial knee pain Include sunrise COMPARISON: None. TECHNIQUE: 3 views of the left knee were obtained. FINDINGS: No significant joint space narrowing. No acute bony abnormalities. IMPRESSION: No acute findings. WORKSTATION: [id number] * * THIS IS AN ELECTRONICALLY VERIFIED REPORT CREATED USING VOICE RECOGNITION * * 06/11/2025 10:51 AM Luke Odom MD Procedure Note Luke Odom MD - 06/11/2025 EXAM: XR KNEE LEFT 3 VW INDICATION: chronic medial knee pain Include sunrise COMPARISON: None. TECHNIQUE: 3 views of the left knee were obtained. FINDINGS: No significant joint space narrowing. No acute bonyabnormalities. IMPRESSION: No acute findings. WORKSTATION: [id number] * * THIS IS AN ELECTRONICALLY VERIFIED REPORT CREATED USING VOICERECOGNITION * * 06/11/2025 10:51 AM Luke Odom MD us Seth Wong DO IMG DIAGNOSTIC IMAGING ORDERABL ES Final Result * MT OSTEOPATHIC MANIPULATIVE TX 1-2 BODY REGIONS (06/11/2025 9:00 AM EDT) Narrative .MANUAL ENTRY (EXTERNAL LAB) - 06/11/2025 9:00 AM EDT Seth Wong DO 06/11/2025 10:58 AM OMT MANIP, MULT Date/Time: 06/11/2025 9:00 AM Performed by: Seth Wong DO Authorized by: Seth Wong DO Consent given by: patient Body Regions: Thoracic and Ribs Thoracic Technique:: Myofascial release Ribs Technique:: Myofascial release Post Procedure: Disposition: Patient showed good subjective and objective results, There was an improvement in mechanics and Patient tolerated the procedure well Seth Wong DO PROCDOC ORDERABLES Final Result .MANUAL ENTRY (EXTERNAL LAB) Please Refer to Scanned Lab Report * PHYSICAL THERAPY/REHAB(SCAN) (05/08/2025 12:00 AM EDT) Only the most recent of2 resultswithin the time period is included. us Unknown Scanprovider SCANNING PROCEDURES Final R esult * VAGINITIS ABIMAEL PANEL (05/02/2025 2:59 PM EDT) Kenzie Albicans ABIMAEL Negative Negative 05/03/2025 10:11 AM EDT [facility] Comment:NOTE: Kenzie albica ns test group includes other Kenzie species, including C. albicans, C. tropicalis, C. parapsilosis, and C. dubliniensis. Kenzie Glabrata ABIMAEL Negative Negative 05/03/2025 10:11 AM EDT [facility] Gardnerella Vaginalis ABIMAEL Negative Negative 05/03/2025 10:11 AM EDT [facility] Trichomonas Vaginalis ABIMAEL Negative Negative 05/03/2025 10:11 AM EDT [facility] Swab VAGINAL STRUCTURE / Unknown Non-blood Collection / Unknown 05/02/2025 2:59 PM EDT 05/02/2025 3:28 PM EDT Narrative [facility] - 05/03/2025 10:11 AM EDT Nucleic acid amplification (ABIMAEL) assay used to detect common vaginal pathogens associated with vaginitis/vaginosis and genital tract infections in women and men. This test was developed and its performance characteristics determined by [facility] This test is used for clinical purposes and should not be regarded as investigational or for research. Delmy Lynn MD MICROBIOLOGY - GENERAL ORDERABL ES Final Result Performing Organization Address City/[facility]/ZIP Co de Phone Number [address] [place] [address] * CHLAMYDIA + GC ABIMAEL (05/02/2025 2:59 PM EDT) Chlamydia ABIMAEL Negative Negative 05/03/2025 4:56 PM EDT [facility] Gonorrhea ABIMAEL Negative Negative 05/03/2025 4:56 PM EDT [facility] Swab VAGINAL STRUCTURE / Unknown Non-blood Collection / Unknown 05/02/2025 2:59 PM EDT 05/02/2025 3:28 PM EDT Delmy Lynn MD MICROBIOLOGY - GENERAL ORDERABL ES Final Result Performing Organization Address [facility]/ZIP Co de Phone Number [address] [place] [address] * POC GLYCOSYLATED HEMOGLOBIN (HBA1C) FINGER STICK (05/02/2025 2:18 PM EDT) Hemoglobin A1C 5.2 4.5 - 5.7 % .MANUAL ENTRY (EXTERNAL LAB) 05/02/2025 2:18 PM EDT Delmy Lynn MD POINT OF CARE TEST ENTER/EDIT O RDERABLES Final Result Performing Organization Address City/[facility]/ZIP Co de Phone Number .MANUAL ENTRY (EXTERNAL LAB) Please Refer to Scanned Lab Report * (ABNORMAL) Urinalysis Microscopic (04/28/2025 8:58 PM EDT) Leukocytes 0-2 0 - 2 /HPF 04/28/2025 9:36 PM EDT [facility] Erythrocytes 10-50(A) 0 - 2 /HPF 04/28/2025 9:36 PM EDT [facility] Squamous Epithelial Cells 3+ /HPF 04/28/2025 9:36 PM EDT [facility] Bacteria None Seen /HPF 04/28/2025 9:36 PM EDT [facility] Urine Culture Comment Not Indicated 04/28/2025 9:36 PM EDT [facility] Urine VOIDED URINE SPECIMEN / Unknown Non-blood Collection / Unknown 04/28/2025 8:58 PM EDT 04/28/2025 9:03 PM EDT Nelia Elizondo DO URINALYSIS ORDERABLES Final Result [facility] [address] [place] [address] * (ABNORMAL) Urinalysis Reflex Sediment + Culture (04/28/2025 8:58 PM EDT) Color UR Pale Yellow 04/28/2025 9:26 PM EDT [facility] Appearance UR Clear 04/28/2025 9:26 PM EDT [facility] Specific [place] UR 1.005 1.005 - 1.030 04/28/2025 9:26 PM EDT [facility] pH UR 7.0 5.0 - 8.0 04/28/2025 9:26 PM EDT [facility] Leukocyte Esterase UR Negative Negative 04/28/2025 9:26 PM EDT [facility] Nitrite UR Negative Negative 04/28/2025 9:26 PM EDT [facility] Protein UR QL Negative Negative mg/dL 04/28/2025 9:26 PM EDT [facility] Glucose UR QL Negative Negative mg/dL 04/28/2025 9:26 PM EDT [facility] Ketones UR QL Negative Negative 04/28/2025 9:26 PM EDT [facility] Urobilinogen UR Normal Normal mg/dL 04/28/2025 9:26 PM EDT [facility] Hemoglobin UR Approx 50(A) Negative Obed/uL 04/28/2025 9:26 PM EDT [facility] Urine Sediment Performed 04/28/2025 9:26 PM EDT [facility] Urine VOIDED URINE SPECIMEN / Unknown Non-blood Collection / Unknown 04/28/2025 8:58 PM EDT 04/28/2025 9:03 PM EDT us Nelia Elizondo DO URINALYSIS ORDERABLES Final Result [facility] [address] [place] [address] * (ABNORMAL) COMPREHENSIVE METABOLIC PANEL (02/21/2025 12:28 PM EDT) Sodium 136 135 - 145 mEq/L 02/21/2025 1:56 PM EDT [facility] Potassium 3.9 3.5 - 5.1 mEq/L 02/21/2025 1:56 PM EDT [facility] Chloride 102 96 - 108 mEq/L 02/21/2025 1:56 PM EDT [facility] Carbon Dioxide 23 21 - 30 mEq/L 02/21/2025 1:56 PM EDT [facility] Anion Gap 11 7 - 16 mEq/L 02/21/2025 1:56 PM EDT [facility] Blood Urea Nitrogen 11 6 - 20 mg/dL 02/21/2025 1:56 PM EDT [facility] Creatinine 0.70 0.59 - 1.04 mg/dL 02/21/2025 1:56 PM EDT [facility] BUN Creatinine Ratio 15.7 02/21/2025 1:56 PM EDT [facility] Glucose 102(H) 70 - 99 mg/dL 02/21/2025 1:56 PM EDT [facility] Comment:Per ADA guidelines t hese ranges are for fasting glucose only Protein 6.9 6.4 - 8.3 g/dL 02/21/2025 1:56 PM EDT [facility] Albumin 4.2 3.5 - 5.1 g/dL 02/21/2025 1:56 PM EDT [facility] Globulin 2.7 2.0 - 3.5 g/dL 02/21/2025 1:56 PM EDT [facility] Albumin/Globulin Ratio 1.6 02/21/2025 1:56 PM EDT [facility] Bilirubin 0.2 <=1.2 mg/dL 02/21/2025 1:56 PM EDT [facility] Calcium 9.1 8.5 - 10.2 mg/dL 02/21/2025 1:56 PM EDT [facility] Alkaline Phosphatase 53 35 - 104 U/L 02/21/2025 1:56 PM EDT [facility] AST 16 8 - 43 U/L 02/21/2025 1:56 PM EDT [facility] ALT 13 7 - 45 U/L 02/21/2025 1:56 PM EDT [facility] EGFR (MDRD) >60 >60.0 mL/min/1.7 3m(2) 02/21/2025 1:56 PM EDT [facility] Comment:This test has multip le limitations. Please see [email or web address]. Blood VENOUS STRUCTURE / Unknown Venipuncture / Unknown 02/21/2025 12:28 PM EDT 02/21/2025 12:28 PM EDT [facility] CHEMISTRY ORDERABLES Final Resu lt Performing Organization Address [facility]/ZIP Co de Phone Number [facility] [address] [place] [address] * HEPATITIS C AB (03/11/2022) Hepatitis C Ab (MANUAL ENTRY) negative mIU/mL .MANUAL ENTRY (EXTERNAL LAB) Blood VENOUS STRUCTURE / Unknown Historical Provider CHEMISTRY ORDERABLES Final R esult Performing Organization Address City/[facility]/ZIP Co de Phone Number .MANUAL ENTRY (EXTERNAL LAB) Please Refer to Scanned Lab Report * HM HPV RESULT (10/15/2021) HPV Report Summary Normal .MANUAL ENTRY (EXTERNAL LAB) Historical Provider HEALTH MAINTENANCE Final Res ult Performing Organization Address City/[facility]/ZIP Co de Phone Number .MANUAL ENTRY (EXTERNAL LAB) Please Refer to Scanned Lab Report * HIV 1+2 AB + AG W/DIFFERENTIAL REFLEX (MANUAL ENTRY) (10/18/2019) HIV 1+2 Ab + Ag (MANUAL ENTRY) non reavtive .MANUAL ENTRY (EXTERNAL LAB) 10/18/2019 us Historical Provider MANUAL ENTRY Final Result .MANUAL ENTRY (EXTERNAL LAB) Please Refer to Scanned Lab Report from Last 3 Months or Most Recently Relevant to Health Maintenance Insurance MEDICAID Member Subscriber Plan / Payer (Ef fective 2023-Present) Name:HOMA ALBA Relation to Subscriber:Self Name:Homa Alba Payer ID:Not on file Group ID:Not on file Type:Not on file Address: [facility] [employer] [address] [address] Care Teams Crosscutter Relationship Specialty Start Date End Date Delmy Lynn MD [address] [id number] PCP - General Family Medicine 12/14/23 Margarita Gill CNM [address] [place] [address] Therapeutic Case Manager Certified Nurse Therapeutic Case Manager 08/23/24 Seth Wong DO [address] [place] [address] Physician Physical Medicine and Rehab 09/20/24 Gustavo Faulkner, PT [address] [place] [address] Physical Therapist Physical Therapy 05/01/25
--- OUTSIDE RECORDS SUMMARY | 2025-06-20 19:51 | XMS_ITS | Encounter Summary ---
Author Organization [facility] Address [address] [place] [address] Care Team Providers Care Psych Rn Name Role Phone Delmy Lynn MD Primary Care Provider [phone] Margarita Gill CNM Unavailable [phone] Seth Wong DO Unavailable [phone] Gustavo Faulkner PT Unavailable [phone] Reason for Referral * Radiology Services (Routine) - Authorized Specialty Diagnoses / Procedures Referred By Darlene lowe Referred To Contact Procedures MR HIP LEFT WO CONTRAST Leigh Almonte MD [address] [place] [address] Phone: tel: fax: Referral ID Status Reason Start Date Expiration Date V isits Requested Visits Authorized [id number] Authorized 09/20/2024 09/20/2025 1 1 Encounter Details Date Type Department Care Team (Late st Contact Info) Description 09/20/2024 Orders Only [facility] [address] [place] [address] Leigh Almonte MD [address] [place] [id number] Social History Tobacco Use Types Packs/Day Years [...] Date Recorded Patient Health Questionnaire-2 Score 0 09/20/2024 Hunger Vital Sign Answer Date Recorded Within the past 12 months, y ou worried that your food would run out before you got the money to buy more. Never true 08/23/20 24 Within the past 12 months, t he food you bought just didn't last and you didn't have money to get more. 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 Not on file Not on file documented as of this encounter Functional Status documented as of this encounter Plan of Treatment Upcoming Encounters Date Type Department Care Team (Late st Contact Info) Description 07/01/2025 9:00 AM EDT Physical Therapy [facility] [address] [phone] Seth Wong, [address] [place] [address] Gustavo Faulkner, PT [address] [place] [address] 07/08/2025 9:00 AM EDT Physical Therapy [facility] Physical Therapy [address] [phone] Seth Wong, [address] [place] [address] Gustavo Faulkner, PT [address] [place] [address] 07/18/2025 7:30 AM EDT Office Visit [facility] Primary Care and Walk-In Care [address] [phone] Delmy Lynn MD [address] [place] [phone] 10/18/2025 9:00 AM EST Initial consult [facility] Obstetrics and Gynecology [address] [place] [address] Sasha Spivey MD [address] [place] [address] [place] [address] documented as of this encounter Procedures Procedure Name Priority Date/Time Associated Diagnosis Comments XR SKULL LESS THAN 4 VW Routine 12/19/2023 10:38 AM EDT MR HIP LEFT WO CONTRAST Routine 12/19/2023 10:34 AM EDT documented in this encounter Results * XR SKULL LESS THAN 4 VW (12/19/2023 10:38 AM EDT) Anatomical Region Laterality Modality Skull, Head, Neck Computed Radio graphy Leigh Almonte MD IMG DIAGNOSTIC IMAGING ORDERAB LES Final Result * MR HIP LEFT WO CONTRAST (12/19/2023 10:34 AM EDT) Anatomical Region Laterality Modality Lower Extremity, Hip, Pelvis, Thigh, Leg Magnetic Resonance Leigh Almonte MD IMG MRI ORDERABLES Final Resul t documented in this encounter Visit Diagnoses Not on filedocumented in this encounter Care Teams Psych Rn Relationship Specialty Start Date End Date Delmy Lynn MD [address] [place] [address] PCP - General Family Medicine 12/14/23 Margarita Gill CNM [address] [place] [address] Mud Engineer Certified Nurse Mud Engineer 08/23/24 Seth Wong DO [address] [place], [place] [phone] Physician Physical Medicine and Rehab 09/20/24 Gustavo Faulkner, PT [address] [place] [address] Physical Therapist Physical Therapy 05/01/25 documented as of this encounter
--- OUTSIDE RECORDS SUMMARY | 2025-06-20 19:51 | XMS_ITS | Encounter Summary ---
Author Organization [facility] Address [address] [place] [address] Care Team Providers Care Budget Analyst Name Role Phone Pcp, No Unavailable Unavailable Leigh Almonte MD Primary Care Provider [phone] Delmy Lynn MD Primary Care Provider [phone] Margarita Gill CNM Unavailable [phone] Seth Wong DO Unavailable [phone] Gustavo Faulkner PT Unavailable [phone] Encounter Details Date Type Department Care Team (Late st Contact Info) Description 04/12/2016 Hospital Visit [facility] Emergency Provider, Unknown Kirk Sheth [place] [address] Social History Tobacco Use Types Packs/Day Years Used Date Smoking Tobacco: Never Assessed Comments Unknown Sex and Gender Information Value Date Recorded Sex Assigned at Female 03/15/2024 12:44 PM EDT Legal Sex Female 3:05 AM EDT Gender Identity Female 03/15/2024 12:44 PM EDT Sexual Orientation Straight 03/15/2024 12 :44 PM EDT documented as of this encounter ED Notes * Kirk Sheth - 04/12/2016 3:11 AM EDT Patient Name: HOMA MCARTHUR Date of : 1990 Date of ED visit: 04/12/16 ED Physician: Obie SHETH DO Primary Care: NO PRIMARY CARE DOCTOR General Evaluation Time: 03:11 Check for Positives Items documented indicate positives, otherwise considered negative. Note other findings. History of Present Illness Elements to Consider Elements to Consider: Onset, Timing, Quality, Location, Severity, Context, Associated Symptoms, Exacerbated by and Relieved by. (L1: 3 elements, L4-5: 4+ elements) History Patient was here roughly a day of malaise, sensation of bladder fullness, urgency and frequency. No recent urinary tract infections. She's not had any fevers, nausea or vomiting. Last urinary tract infection was when she was in high school in 2007. She did have a history of urinary tract infections as a very young child none of which she remembers. Generally her health is good and she is not treated for any chronic conditions. *Home Medications and new Rx's Home Meds Active Pyridium (Phenazopyridine HCl) Tab 100 Mg PO Q8H PRN . Macrobid (Twice A Day) (Nitrofurantoin Macrocrystals) 100 Mg Cap 100 Mg PO BID 7 Days Reported Aldactone (Spironolactone) Tablet 50 Mg PO BID [trisprintec] *Allergies: Coded Allergies: doxycycline (Verified Adverse Reaction, Intermediate, severe nausea, 04/12/16) Past History Past Medical History Urinary tract infections as a youngster otherwise noncontributory Review of Systems Systems Reviewed as Positive: Constitution, No GI, , No Musculoskeletal, No Skin Physical Exam Triage Assessment Reviewed?: Yes *Vital Signs: Vital Signs Date Time Temp Pulse Resp B/P Pulse Ox O2 Delivery O2 Flow Rate FiO2 04/12/16 03:09 35.3 100 16 140/84 99 Exam Notes: GENERAL: Alert, non-toxic, no acute distress HEENMT: Normocephalic, atraumatic CHEST: Normal ABD: soft and non-tender, suprapubic tenderness, no rebound or guarding Back: Nontender, no CVA tenderness EXTREMITIES: MOEx4, no deformities SKIN: [place], warm, dry NEURO: Alert and oriented, no focal deficits Labs: Laboratory Tests Test 04/12/16 03:15 Urine Specimen Description URINE CLEAN CATCH Urine Color YELLOW Urine Appearance HAZY Urine pH 7.0 Urine Specific [place] 1.005 Urine Protein NEGATIVE mg/dl Urine Glucose (UA) NORMAL mg/dl Urine Ketones NEGATIVE Urine Occult Blood LARGE Urine Nitrite NEGATIVE Urine Urobilinogen NORMAL Urine Leukocyte Esterase LARGE Urine RBC 36-50 /hpf Urine WBC 21-35 /hpf Urine Squamous Epithelial <=2+ Cells Urine Transitional Epithelial NONE SEEN Cells Urine Other Crystals NONE SEEN /hpf Urine Other Casts NONE SEEN /lpf Urine Mucus NONE SEEN Urine Culture Indicated YES Microbiology 04/12/16 Urine Culture, Received Pending Course ED Management and Summary UA is positive, cultures pending, assessment is urinary tract infection without evidence of any ascending infection. Will treat with Macrobid twice a day, Pyridium for symptomatic relief Results relayed the patient expressed understanding and agreement with the plan Discharged in stable condition Medications Given: Medications Given in ED Medications (Trade) Dose Ordered Sig/Marii Route PRN Reason Start Time Stop Time Status Last Admin Dose Admin Nitrofurantoin Macrocrystals (Macrobid) 100 mg ONCE ONCE PO 04/12/16 04:00 04/12/16 04:01 UNV Phenazopyridine HCl (Take Home Phenazopyridine 200 Mg Tab) 400 mg ONCE ONCE PO 04/12/16 04:00 04/12/16 04:01 UNV Impression Urinary tract infection Plan Pyridium, Macrobid, fluids, follow up as needed Departure Departure Problems: (1) urinary tract infection Diagnosis: urinary tract infection Disposition: HOME, NO SERVICES Condition: Improved Scripts Phenazopyridine (Pyridium) [id number] Mg PO Q8H PRN #12 TAB . Prov:Obie SHETH DO 04/12/16 Nitrofurantoin Macrobid (Twice A Day) (Macrobid (Twice A Day))100 Mg [id number] Mg PO BID 7 Days Prov:Obie SHETH DO 04/12/16 Patient Instructions: Urinary Tract Infection - Women Additional Instructions: For your urinary tract infection, take the Macrobid antibiotic twice a day for the next 7 days. A urine culture is pending. In the next 2 days we should have results from that. You will be contacted if the results indicate you should be on a different antibiotic. You have also been prescribed Pyridium which is to help treat your urinary tract related pain. This will change your urine orange as well as tears. If you wear contact lenses please remove them prior to taking this medication. Drink plenty of fluids especially cranberry juice and water to help flush the urinary tract For pain, you may take Tylenol up to 1000mg three times a day and or ibuprofen 600mg four times a day. Take with food to avoid upset stomach. Return to the hospital for worsening pain, fevers, nausea, vomiting Referrals: NO PRIMARY CARE DOCTOR (PCP) Obie SHETH DO Apr 12, 2016 03:11 <Electronically signed by Obie SHETH DO> 04/12/1627 Addendum #1 04/12/16 0814 Addendum: JACK LEPE MD on 04/12/16 @ 08:12 Pt called ED to report nausea and one episode of vomiting when she got home. She states that her bladder actually feels better this morning, denies back pain or fever or chills. No other sx that sound like allergic reaction to abx. Low suspicion that this has rapidly progressed to pyelonephritis based on her description, so feel it is reasonable to try adding zofran, encourage hydration, and continue macrobid. Instructed her to return or call back if she continues to have symptoms as this may represent worsening of her condition and may require IV abx. Called zofran into pharmacy. <Electronically signed by JACK LEPE MD>on 04/12/16726 documented in this encounter Plan of Treatment Upcoming Encounters Date Type Department Care Team (Late st Contact Info) Description 07/01/2025 9:00 AM EDT Physical Therapy [facility] [address] [phone] Seth Wong DO [address] [place] [address] Gustavo Faulkner, PT [address] [place] [address] 07/08/2025 9:00 AM EDT Physical Therapy [facility] [address] [place] [address] Seth Wong DO [address] [place] [address] Gustavo Faulkner, PT [address] [place], [place] [phone] 07/18/2025 7:30 AM EDT Office Visit [facility] Primary Care and Walk-In Care [address] [phone] Delmy Lynn MD [address] [place] [address] 10/18/2025 9:00 AM EST Initial consult [facility] Obstetrics and Gynecology [address] [place] [address] Sasha Spivey MD [address] [place] [address] [address] [place] [address] documented as of this encounter Procedures Procedure Name Priority Date/Time Associated Diagnosis Comments URINALYSIS MICROSCOPIC STAT 04/12/2016 3:15 AM EDT URINALYSIS REFLEX SEDIMENT + CULTURE STAT 04/12/2016 3:15 AM EDT CULTURE URINE STAT 04/12/2016 3:15 AM EDT documented in this encounter Results * CULTURE URINE (04/12/2016 3:15 AM EDT) 04/12/2016 3:15 AM EDT 04/12/2016 3:35 AM EDT [facility] - 04/12/2016 3:15 AM EDT ----- ------- RUN DATE: 04/13/16 [facility] LIVE PAGE 1 RUN TIME: 902 Specimen Inquiry ----- ------- PATIENT: HOMA MCARTHUR ACCT: [id number] LOC: ED U: [id number] AGE/SX: ROOM: RE04/12/[address]: Obie SHETH DO : 1990 BED: DIS: STATUS: DEP ER TLOC: ----- ------- SPEC #: [id number] JACKY: 04/12/16 STATUS: COMP REQ #: [id number] RECD: 04/12/[address]: Obie SHETH DO SOURCE: URINE ENTR: 04/12/16 ADRIAN PICKENS: MJ PRIMARY CARE DOCTOR SPDESC: ORDERED: URINE CULTURE COMMENTS: 04/12/16335: URINE CULTURE added. RFLXG = UR. ----- ------- Procedure Result ----- ------- URINE CULTURE (NORDX) Final SEE BELOW SOURCE: URINE SITE: CULTURE URINE,FINAL >100,000 CFU/mL GRAM NEGATIVE MALDONADO NITROFURANTOIN IS FOR UNCOMPLICATED UTI'S ONLY. ORGANISM 01 ESCHERICHIA COLI Org E. COLI ANTIBIOTIC SAMUEL(MCG/ML) INTERP AMIKACIN <=8 S AMPICILLIN >16 R AZTREONAM <=2 S CEFAZOLIN 4 I CEFEPIME <=1 S CEFTRIAXONE <=1 S ERTAPENEM <=0.25 S GENTAMICIN <=2 S IMIPENEM <=0.25 S LEVOFLOXACIN <=1 S NITROFURANTOIN <=16 S PIPERACILLIN/TAZOBACTAM <=2/4 S TETRACYCLINE >8 R TOBRAMYCIN <=2 S TRIMETHOPRIM/SULFA >2/38 R Ordered Test : CULTURE URINE PERFORMED BY: [employer] [place] [id number] [place] [address] CAR KNOCKER: Keshia Calero MD, PhD CLIA: [id number] ----- ------- END OF REPORT Kirk Sheth MD MICROBIOLOGY - GENERAL ORDERABLES Final Result [facility] [place] [address] * (ABNORMAL) URINALYSIS MICROSCOPIC (04/12/2016 3:15 AM EDT) Erythrocyte Ur Sediment 36-50(A) 0 - 5 /hpf 04/12/2016 3:36 AM T [facility] Leukocytes Ur Sediment 21-35(A) 0 - 5 /hpf 04/12/2016 3:36 AM EDT [facility] Squamous Epithelial Cell UR <=2+ <=2+ 04/12/2016 3:36 AM EDT [facility] Epithelial Cells UR Sediment NONE SEEN 04/12/2016 3:36 AM T [facility] Crystals UR Sediment NONE SEEN /hpf 04/12/2016 3:36 AM T [facility] Casts UR Sediment NONE SEEN /lpf 04/12/2016 3:36 AM [facility] Mucus UR NONE SEEN 04/12/2016 3:36 AM [facility] Reflex Culture UR? YES(A) 04/12/2016 3:36 AM [facility] Comment:URINE CULTURE REFLEX ED 04/12/2016 3:15 AM EDT 04/12/2016 3:35 AM EDT [facility] - 04/12/2016 3:15 AM EDT 04/12/16 0335: MICROSCOPIC added. RFLXG = UMIC. Specimen Source::URINE,CLEAN CATCH us Kirk Sheth MD URINALYSIS ORDERABLES F inal Result [facility] [place] [address] * (ABNORMAL) URINALYSIS REFLEX SEDIMENT + CULTURE (04/12/2016 3:15 AM EDT) Specimen Description UR URINE CLEAN CATCH 04/12/2016 3:35 AM [facility] Color Ur YELLOW YELLOW 04/12/2016 3:35 AM [facility] Appearance UR HAZY(A) CLEAR 04/12/2016 3:35 AM T [facility] Specific [place] UR 1.005(L) 1.010 - 1.030 04/12/2016 3:31 AM [facility] pH Ur 7.0 4.5 - 8.0 04/12/2016 3:31 AM [facility] Leukocyte Esterase Ur LARGE(A) NEGATIVE 04/12/2016 3:35 AM [facility] Nitrite Ur NEGATIVE NEGATIVE 04/12/2016 3:31 AM T [facility] Protein UR NEGATIVE NEGATIVE mg/dl 04/12/2016 3:31 AM T [facility] Glucose, Ur NORMAL NORMAL mg/dl 04/12/2016 3:31 AM [facility] Ketones Ur Ql NEGATIVE NEGATIVE 04/12/2016 3:31 AM [facility] Urobilinogen Ur NORMAL NORMAL 6 3:31 AM [facility] Hemoglobin, UR LARGE(A) NEGATIVE 04/12/2016 3:35 AM [facility] 04/12/2016 3:15 AM EDT 04/12/2016 3:35 AM T Narrative [facility] - 04/12/2016 3:15 AM EDT 04/12/16 0335: MICROSCOPIC added. RFLXG = UMIC. Specimen Source::URINE,CLEAN CATCH us Kirk Sheth MD URINALYSIS ORDERABLES F inal Result [facility] [place] [id number] documented in this encounter Visit Diagnoses Not on filedocumented in this encounter Care Teams Budget Analyst Relationship Specialty Start Date End Date Pcp, No PCP - Generic [facility] PCP 07/30/20 01/09/21 Leigh Almonte MD [address] [place] [address] PCP - General Family Medicine 01/10/21 12/13/23 Delmy Lynn MD [address] [place] [address] PCP - General Family Medicine 12/14/23 Margarita Gill CNM [address] [place] [address] Pit Hoist Operator Certified Nurse Pit Hoist Operator 08/23/24 Seth Wong DO [address] [place], [place] [phone] Physician Physical Medicine and Rehab 09/20/24 Gustavo Faulkner, PT [address] [place] [address] Physical Therapist Physical Therapy 05/01/25 documented as of this encounter
--- OUTSIDE RECORDS SUMMARY | 2025-06-20 19:51 | XMS_ITS | Encounter Summary ---
[facility] Organization [facility] Address [address] [place] [address] Care Team Providers Care Parking Technician Name Role Phone Delmy Lynn MD Primary Care Provider [phone] Margarita Gill CNM Unavailable [phone] Seth Wong DO Unavailable [phone] Gustavo Faulkner PT Unavailable [phone] Encounter Details Date Type Department Care Team (Late st Contact Info) Description 05/02/2025 Results Follow-Up [facility] Primary Care and Walk-In Care [address] [phone] Delmy Lynn MD [address] [place] [address] POC GLYCOSYLATED HEMOGLOBIN (HBA1C) FINGER STICK, CHLAMYDIA + GC ABIMAEL, VAGINITIS ABIMAEL PANEL Social History Tobacco Use Types Packs/Day Years [...] Date Recorded Patient Health Questionnaire-2 Score 0 05/02/2025 Hunger Vital Sign Answer Date Recorded Within the past 12 months, y ou worried that your food would run out before you got the money to buy more. 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 documented in this encounter Plan of Treatment Upcoming Encounters Date Type Department Care Team (Late st Contact Info) Description 07/01/2025 9:00 AM EDT Physical Therapy [facility] [address] [phone] Seth Wong DO [address] [place] [address] Gustavo Faulkner, PT [address] [place] [address] 07/08/2025 9:00 AM EDT Physical Therapy [facility] Physical Therapy [address] [phone] Seth Wong DO [address] [place] [address] Gustavo Faulkner, PT [address] [place] [address] 07/18/2025 7:30 AM EDT Office Visit [facility] Primary Care and Walk-In Care [address] [phone] Delmy Lynn MD [address] [place] [address] 10/18/2025 9:00 AM EST Initial consult [facility] Obstetrics and Gynecology [address] [place] [facility] [place] [address] Sasha Spivey MD [address] [place] [address] [place] [address] documented as of this encounter Visit Diagnoses Not on filedocumented in this encounter Care Teams Parking Technician Relationship Specialty Start Date End Date Delmy Lynn MD [address] [place] [address] PCP - General Family Medicine 12/14/23 Margarita Gill [place] [address] Audit Practice Intern Certified Nurse Audit Practice Intern 08/23/24 Seth Wong DO [address] [facility] [address] [place] [address] Physician Physical Medicine and Rehab 09/20/24 Gustavo Faulkner, PT [address] [place] [address] Physical Therapist Physical Therapy 05/01/25 documented as of this encounter
--- OUTSIDE RECORDS SUMMARY | 2025-06-20 19:51 | XMS_ITS | Encounter Summary ---
Author Organization [facility] Address [address] [place] [address] Care Team Providers Care Manager Photo Name Role Phone Leigh Almonte MD Primary Care Provider Leigh Almonte MD Primary Care Provider Delmy Lynn Unavailable None, Provider URBAN RENEWAL MANAGER Primary Care Provider Unavaila ble Leigh Almonte MD Primary Care Provider Reason for Visit * Reason Onset Date Comments Appointment Related 07/09/2020 Encounter Details Date Type Department Care Team (Late st Contact Info) Description 07/09/2020 Telephone [facility] Dermatology 3rd Floor [facility] [address] [place], [place] [phone] Shlomo Gandara MD [address] [place] [phone] Appointment Related Social History Tobacco Use Types Packs/Day Years Used Date Smoking Tobacco: Never Smokeless Tobacco: Never Alcohol Use Standard Drinks/Week Comments Yes 0 (1 standard drink = 0.6 oz pur e alcohol) rare PHQ-2 Answer Date Recorded PHQ-2 Score 0 04/20/2020 Hunger Vital Sign Answer Date Recorded Worried About Running Out of Food in the Last Ye ar Never true 05/27/2020 Ran Out of Food in the Last Year Never true 05/27/2020 Interpersonal Safety Answer Date Record ed Physically Hurt Never 04/20/2020 Verbally Threaten Never 04/20/2020 Comments No Sex and Gender Information Value Date Recorded Sex Assigned at Female 10/14/2019 20:36 EST Legal Sex Female 17:55 EST Gender Identity Female 10/12/2019 9:28 EST Sexual Orientation Straight 10/14/2019 20 :36 EST Occupation Industry Job Start Date Job End Date Not on file Not on file Not on file Not on file documented as of this encounter Functional Status * Because of a physical, mental, or emotional condition, does this person have difficulty doing errands alone such as visiting a doctor's office or shopping? Answer Date of Assessment Author No 06/03/2015 11:17 EDT documented as of this encounter Mental Status * Because of a physical, mental, or emotional condition, does this person have serious difficulty concentrating, remembering, or making decisions? Answer Entry Date Author No 06/03/2015 11:17 EDT documented in this encounter Miscellaneous Notes * Telephone Encounter - Lizet Reynolds MA - 07/10/2020 0806 EDT When patient calls, OK to schedule into next available LAS slot on EP3. We do not keep cancellationlists, she is welcome to call back to check for them, but as of right now, I believe July is fully booked. LIZET REYNOLDS MA 07/10/2020 8:07 * Telephone Encounter - Ani Joya - 07/09/2020 1614 EDT Patient called stating she needed to cancel her appointment on 07/10/20 w/ Dr. Gandara as she is waiting for COVID test results. Patient states she was in [place] that the [place] while [place] there but [place] since turned [place]. Patienthas quarantined for 10 days, took a COVID test on 07/07 but has not received results as of yet. Info rmed patient that she would need a negative test result before she could be seen. Told her to call us when she receives a negative result and we will try to get her rescheduled. ANI JOYA MA 07/09/2020 16:20 documented in this encounter Plan of Treatment Upcoming Encounters Date Type Department Care Team (Late st Contact Info) Description 10/24/2025 15:15 EST Office Visit [facility] [address] [place] [address] Leigh Almonte MD [address] [place] [phone] 04/10/2026 15:45 EDT Office Visit [facility] [address] [place] [address] Leigh Almonte MD [address] [place] [phone] documented as of this encounter Goals Goal Patient Goal Type Associated Problems Recent Progress Patient-Stated? Author Healthy Eating General Yes Ewelina Gray, RD Note: Healthy Eating Goal: Consume 4-6 small meals each day. Confidence level (1= Not very confident; 10 = Very confident): 8 Barriers: None documented as of this encounter Visit Diagnoses Not on filedocumented in this encounter Care Teams Manager Photo Relationship Specialty Start Date End Date Leigh Almonte MD [address] [place] [phone] PCP - General 06/24/11 02/16/21 Leigh Almonte MD [address] [place] [phone] PCP - General Family Medicine - Primary Care 09/09/23 12/04/24 None, Provider, URBAN RENEWAL MANAGER PCP - General 12/05/24 01/30/25 Leigh Almonte MD [address] [place] [phone] PCP - General Family Medicine - Primary Care 01/31/25 [place] [address] 09/09/24 documented as of this encounter
--- OUTSIDE RECORDS SUMMARY | 2025-06-20 19:51 | XMS_ITS | Encounter Summary ---
Author Organization [facility] Address [address] [place] [address] Care Team Providers Care Case Assembler Name Role Phone Delmy Lynn MD Primary Care Provider [phone] Margarita Gill CNM Unavailable [phone] Seth Wong DO Unavailable [phone] Gustavo Faulkner PT Unavailable [phone] Reason for Visit * Reason Onset Date Comments Urinary Symptoms 06/12/2025 Encounter Details Date Type Department Care Team (Late st Contact Info) Description 06/12/2025 Telephone [facility] Primary Care and Walk-In Care [address] [phone] Delmy Lynn MD [address] [place] [phone] Urinary Symptoms Social History Tobacco Use Types Packs/Day Years [...] 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 Antibiotics were finished, and Homa is still experiencing symptoms. She would like to get another course of antibiotics, and would like to know if it is necessary for her to be seen in the office first. documented in this encounter Plan of Treatment Upcoming Encounters Date Type Department Care Team (Late st Contact Info) Description 07/01/2025 9:00 AM EDT Physical Therapy [facility] [address] [phone] Seth Wong DO [address] [place] [address] Gustavo Faulkner, PT [address] [place] [address] 07/08/2025 9:00 AM EDT Physical Therapy [facility] [address] [phone] Seth Wong DO [address] [place] [address] Gustavo Faulkner, PT [address] [place] [address] 07/18/2025 7:30 AM EDT Office Visit [facility] Primary Care and Walk-In Care [address] [phone] Delmy Lynn MD [address] [place] [address] 10/18/2025 9:00 AM EST Initial consult [facility] Obstetrics and Gynecology [address] [place] [address] Sasha Spivey MD [address] [place] [address] [place] [address] documented as of this encounter Visit Diagnoses Not on filedocumented in this encounter Care Teams Case Assembler Relationship Specialty Start Date End Date Delmy Lynn MD [address] [place] [address] PCP - General Family Medicine 12/14/23 Margarita Gill CNM [address] [place] [address] Keel Press Operator Certified Nurse Keel Press Operator 08/23/24 Seth Wong DO [address] [place], [place] [phone] Physician Physical Medicine and Rehab 09/20/24 Gustavo Faulkner, PT [address] [place] [address] Physical Therapist Physical Therapy 05/01/25 documented as of this encounter
--- OUTSIDE RECORDS SUMMARY | 2025-06-20 19:52 | XMS_ITS | Encounter Summary ---
Author Organization [facility] Address [address] [place] [address] Care Team Providers Care Combo Welder Name Role Phone Leigh Almonte MD Primary Care Provider LeahCarlaDelmy L Unavailable None, Provider CUTTING AND CREASING PRESS OPERATOR Primary Care Provider Unavaila ble Leigh Almonte MD Primary Care Provider Reason for Visit * Reason Onset Date Comments Follow-up 08/02/2022 Encounter Details Date Type Department Care Team (Late st Contact Info) Description 08/02/2022 Telephone [facility] Dermatology 3rd Floor [facility] [address], [place] [phone] Mary Smith, RN [address] [place], [place] [phone] Follow-up Social History Tobacco Use Types Packs/Day Years [...] care, and heating? Not hard at all 03/30/2022 PHQ-2 Answer Date Recorded PHQ-2 SUBTOTAL 0 03/30/2022 Exercise Vital Sign Answer Date Recorde d [...] the money to buy more. Never true 03/30/20 22 Within the past 12 months, t he food you bought just didn't last and you didn't have money to get more. Never true 03/30/2022 PRAPARE - Transportation Answer Date Re corded In the past 12 months, has l ack of transportation kept you from medical appointments or from getting medications? No 03/19 In the past 12 months, has l ack of transportation kept you from meetings, work, or from getting things needed for daily living? No 03/30/2022 Housing Stability Vital Sign Answer Raciel e Recorded In the last 12 months, was t here a time when you were not able to pay the mortgage or rent on time? No 03/30/2022 In the last 12 months, how many places have you lived? 1 03/30/2022 In the last 12 months, was t here a time when you did not have a steady place to sleep or slept in a retirement (including now)? No 03/30/2022 Interpersonal Safety Answer Date Record ed How often does anyone, romina grier family, hit, punch or physically hurt you? Never 03/30/2022 How often does anyone, romina grier family, insult, scream, curse or threaten to hurt you? Never 03/30/2022 Education Answer Date Recorded What is the highest level of school you have completed or the highest degree you have received? Master's degree (e.g., MA, MS, Candice, MEd, TEACHER ADVENTURE EDUCATION, KI) 02/03/2021 Comments No Sex and Gender [...] encounter Miscellaneous Notes * Telephone Encounter - Dulce Maria Smith - 08/02/2022 4952 EST Patient called regarding after visit instructions for her chemical peel, but doesn't see it on her AVS. Patient is unsure what to do with the vaseline after today and the sunscreen. Please advise. documented in this encounter Plan of Treatment Upcoming Encounters Date Type Department Care Team (Late st Contact Info) Description 10/24/2025 15:15 EST Office Visit [address] [address] Leigh Almonte MD [address] [place] [phone] 04/10/2026 15:45 EDT Office Visit [facility] [address] [place] [address] Leigh Almonte MD [address] [place] [phone] documented as of this encounter Goals Goal Patient Goal Type Associated Problems Recent Progress Patient-Stated? Author Healthy Eating General Yes Ewelina Gray, RD Note: Healthy Eating Goal: Consume 4-6 small meals each day. Confidence level (1= Not very confident; 10 = Very confident): 8 Barriers: None documented as of this encounter Visit Diagnoses Not on filedocumented in this encounter Care Teams Combo Welder Relationship Specialty Start Date End Date Leigh Almonte MD [address] [place] [phone] PCP - General Family Medicine - Primary Care 09/09/23 12/04/24 None, Provider, CUTTING AND CREASING PRESS OPERATOR PCP - General 12/05/24 01/30/25 Leigh Almonte MD [address] [place] [phone] PCP - General Family Medicine - Primary Care 01/31/25 [place] [address] 09/09/24 documented as of this encounter
--- OUTSIDE RECORDS SUMMARY | 2025-06-20 19:52 | XMS_ITS | Encounter Summary ---
Author Organization [facility] Address [address] [place] [address] Care Team Providers Care Drafter Structural Name Role Phone Delmy Lynn Unavailable Leigh Almonte MD Primary Care Provider Reason for Visit * Reason Onset Date Comments Tachycardia 06/19/2025 Encounter Details Date Type Department Care Team (Late st Contact Info) Description 06/19/[address] [address] Erin Feldman MD [address] [place], [place] [phone] Tachycardia Social History Tobacco Use Types Packs/Day Years [...] place to sleep or slept in a mcc (including now)? No 04/09/2023 Interpersonal Safety Answer [...] Master's degree (e.g., MA, MS, Candice, MEd, TRIPE COOKER, KI) 02/03/2021 Comments No Sex and Gender [...] encounter Miscellaneous Notes * Telephone Encounter - Erin Feldman MD - 06/19/20252041 EDT Emergency Triage Line - Patient Phone Call 06/19/25 20:42 PCP: high heart rate alerts since yesterday (Leigh Almonte) CC: tachycardia High heart alerts since yesterday. Sick yesterday and high heart rate alert 120- 140 at night. Got up in the middle of the night, went up to 170. Then today went down today. Now in the 120s-130s. Bodyaches like having a flu. Yesterday trouble with taking a deep breath, though that has now resolved.Feeling a lot more nauseous today. Feels sick but doesn't feel like has a cold, did have sore throat yesterday, covid and flu yesterday was negative. Feels like she was hot/chills, but hasn't taken her temp. Trying to drink a fair amount, but just had some saltines, gingerale, water, for food today. High heart rate over the winter was only other episode. No chest pain, dizziness, lightheadedness, shortness of breath, leg swelling, leg pain. Tried tylenol last night but not since. Plan: Discussed that given her sore throat, chills, and some nausea today she likely has a viral illness contributing to her tachycardia. Given lack of any other concerning symptoms, including no SOB, CP, lightheadedness, and in setting of fever in an otherwise healthy 35 yo, okay to keep monitoring, take tylenol/ibuprofen, drink plenty of fluids and electrolytes, and get some rest. Discussed that if any of those symptoms were to come up, she should present to the ED, or can call back the emergency FM line this evening for further advice. Erin Rao MD Family Medicine PGY-3 Epic Secure Chat (preferred) or Pager #[phone] 06/19/25 20:42 documented in this encounter Plan of Treatment Upcoming Encounters Date Type Department Care Team (Late st Contact Info) Description 10/24/2025 15:15 EST Office Visit [address] [address] Leigh Almonte MD [address] [place] [phone] 04/10/2026 15:45 EDT Office Visit [address] [address] Leigh Almonte MD [address] [place] [phone] documented as of this encounter Goals Goal Patient Goal Type Associated Problems Recent Progress Patient-Stated? Author Healthy Eating General Yes Deslauriers, Ewelina L, RD Note: Healthy Eating Goal: Consume 4-6 small meals each day. Confidence level (1= Not very confident; 10 = Very confident): 8 Barriers: None documented as of this encounter Visit Diagnoses Not on filedocumented in this encounter Care Teams Drafter Structural Relationship Specialty Start Date End Date Leigh Almonte MD [address] [place] [phone] PCP - General Family Medicine - Primary Care 01/31/25 [place] [address] 09/09/24 documented as of this encounter
--- OUTSIDE RECORDS SUMMARY | 2025-06-20 19:52 | XMS_ITS | Encounter Summary ---
Author Organization [facility] Address [address] [place] [address] Care Team Providers Care Swing Manager Name Role Phone Leigh Almonte MD Primary Care Provider LeahCarlaDelmy L Unavailable None, Provider CARD MOUNTER Primary Care Provider Unavaila ble Leigh Almonte MD Primary Care Provider Reason for Visit * Reason Onset Date Comments Advice Only 02/09/2024 Encounter Details Date Type Department Care Team (Late st Contact Info) Description 02/09/2024 Telephone [facility] OBGYN Services - [facility] [address] [place] [address] Alessandra Graham MD [address] [place] [address] Medical Office Building, [address] [place] [phone] Advice Only Social History Tobacco Use Types Packs/Day Years [...] No 04/09/2023 Housing Stability Vital Sign Answer Arciel e Recorded In the last 12 months, [...] place to sleep or slept in a intermediate (including now)? No 04/09/2023 Interpersonal Safety Answer Date Record ed How often does anyone, incleneida grier family, hit, punch or physically hurt you? Never 04/09/2023 How often does anyone, inclu marvel family, insult, scream, curse or threaten to hurt you? Never 04/09/2023 Education Answer Date Recorded What is the highest level of school you have completed or the highest degree you have received? Master's degree (e.g., MA, MS, Candice, MEd, RELOCATION COUNSELOR, KI) 02/03/2021 Comments No Sex and Gender [...] encounter Miscellaneous Notes * Telephone Encounter - Elizabeth Deshpande - 02/09/2024 1114 EDT TC to pt, to advise her that it is ok to keep appt for tomorrow, but to mask up. Pt verbalized understanding. * Telephone Encounter - Elizabeth Deshpande - 02/09/2024 0809 EDT TC from pt, who is sick; congestion. Tested negative for COVID. Wondering if she can keep her appointment/NPV with you tomorrow @[facility]. Please advise-- ok to mask up, or reschedule for next available in ? documented in this encounter Plan of Treatment Upcoming Encounters Date Type Department Care Team (Late st Contact Info) Description 10/24/2025 15:15 EST Office Visit [address] [address] Leigh Almonte MD [address] [place] [phone] 04/10/2026 15:45 EDT Office Visit [address] [address] Leigh Almonte MD [address] [place] [phone] documented as of this encounter Goals Goal Patient Goal Type Associated Problems Recent Progress Patient-Stated? Author Healthy Eating General Yes Ewelina Gray, RD Note: Healthy Eating Goal: Consume 4-6 small meals each day. Confidence level (1= Not very confident; 10 = Very confident): 8 Barriers: None documented as of this encounter Visit Diagnoses Not on filedocumented in this encounter Care Teams Swing Manager Relationship Specialty Start Date End Date Leigh Almonte MD [address] [place] [phone] PCP - General Family Medicine - Primary Care 09/09/23 12/04/24 None, Provider, CARD MOUNTER PCP - General 12/05/24 01/30/25 Leigh Almonte MD [address] [place] [phone] PCP - General Family Medicine - Primary Care 01/31/25 [place] [address] 09/09/24 documented as of this encounter
--- OUTSIDE RECORDS SUMMARY | 2025-06-20 19:52 | XMS_ITS | Encounter Summary ---
Author Organization [facility] Address [address] [place] [address] Care Team Providers Care Flooring Salesperson Name Role Phone Leigh Alomnte MD Primary Care Provider Leah Delmy Tamayo Unavailable None, Provider POULTRY HANGER Primary Care Provider Unavaila ble Leigh Almonte MD Primary Care Provider Reason for Visit * Reason Onset Date Comments Referral Request 06/03/2023 Update 06/03/2023 Encounter Details Date Type Department Care Team (Late st Contact Info) Description 06/03/[address] [address] Leigh Almonte MD [address] [place] [phone] Referral Request; Update Social History Tobacco Use Types Packs/Day Years [...] place to sleep or slept in a usp (including now)? No 04/09/2023 Interpersonal Safety Answer Date Record ed How often does anyone, romina grier family, hit, punch or physically hurt you? Never 04/09/2023 How often does anyone, incleneida grier family, insult, scream, curse or threaten to hurt you? Never 04/09/2023 Education Answer Date Recorded What is the highest level of school you have completed or the highest degree you have received? Master's degree (e.g., MA, MS, Candice, MEd, RIGGING LOFT MECHANIC, KI) 02/03/2021 Comments No Sex and Gender [...] encounter Miscellaneous Notes * Telephone Encounter - Laurel Osullivan - 06/10/2023 0870 EDT Reason for Call: Referral Request and Update Summary/Symptoms: Patient called stated she found a place for the referral to be sent. [facility] [address] [place] [address] Attn: Mirella Onset and Duration? NA Appointment Offered? Yes,declined Laurel Osullivan 06/10/2023 8:48 * Telephone Encounter - Shawanda Rivero - 06/03/2023 1590 EDT Called patient inquiring as to where she would like to go for physical therapy. Patient states she lives in [place], has called one physical therapy office where she was told they are only accepting surgical patients and is waiting for call back from another office. Patient will call as soon as she has the name of an office. documented in this encounter Plan of Treatment Upcoming Encounters Date Type Department Care Team (Late st Contact Info) Description 10/24/2025 15:15 EST Office Visit [address] [address] Leigh Almonte MD [address] [place] [phone] 04/10/2026 15:45 EDT Office Visit [address] [address] Leigh Almonte MD [address] [place] [phone] documented as of this encounter Goals Goal Patient Goal Type Associated Problems Recent Progress Patient-Stated? Author Healthy Eating General Yes Ewelina Gray, OZZIE Note: Healthy Eating Goal: Consume 4-6 small meals each day. Confidence level (1= Not very confident; 10 = Very confident): 8 Barriers: None documented as of this encounter Visit Diagnoses Not on filedocumented in this encounter Care Teams Flooring Salesperson Relationship Specialty Start Date End Date Leigh Almonte MD [address] [place] [phone] PCP - General Family Medicine - Primary Care 09/09/23 12/04/24 None, Provider, POULTRY HANGER PCP - General 12/05/24 01/30/25 Leigh Almonte MD [address] [place] [phone] PCP - General Family Medicine - Primary Care 01/31/25 [place] [address] 09/09/24 documented as of this encounter
--- OUTSIDE RECORDS SUMMARY | 2025-06-20 19:52 | XMS_ITS | Encounter Summary ---
Author Organization [facility] Address [address] [place] [address] Care Team Providers Care Acoustical Tile Drill Press Operator Name Role Phone Leigh Almonte MD Primary Care Provider Leigh Almonte MD Primary Care Provider Delmy Lynn Unavailable None, Provider FIRE WATCHMAN Primary Care Provider Unavaila ble Leigh Almonte MD Primary Care Provider Reason for Visit * Reason Onset Date Comments Medication Management 04/20/2017 Encounter Details Date Type Department Care Team (Late st Contact Info) Description 04/20/2017 Telephone [facility] Dermatology 3rd Floor [facility] [address] [place] [address] Kvng Lee PA-C [address] [place] [phone] Medication Management Social History Tobacco Use Types Packs/Day Years [...] 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 No answer. Left message: Reviewed her recent mild elevation in serum potassium. It is now back within normal limits on last labs drawn on 04/11/2017. I do recall that she is a smaller patient (body weight 100 pounds or so?) and therefore 100 mg spironolactone/day may be at upperlimit of what she can handle. I recommend the following change: A.) Try cutting spironolactone dose in half - so take 25 mg twice daily instead of 50 mg twice daily. She can more than likely cut her 50 mg tabs in half = 2 x 25 mg. B.) Call me/come back here to our clinic in about 4-6 weeks. If her acne doesn't worsen with this change, then we can simply have her continue spironolactone at 50 mg/day. Kvng Lee PA-C 04/21/2017 14:35 * Telephone Encounter - Elzbieta Andre - 04/20/2017 1234 EDT The patient states that she saw her PCP and her potassium levels were high. She had them rechecked two weeks later and they were in the normal range but borderline. Her PCP thought that this might bedue to the spironolactone and she would like to discuss this with TYSON Kumari. The patient's labs are located in [facility]. documented in this encounter Plan of Treatment Upcoming Encounters Date Type Department Care Team (Late st Contact Info) Description 10/24/2025 15:15 EST Office Visit [facility] [address] [place] [address] Leigh Almonte MD [address] [place] [phone] 04/10/2026 15:45 EDT Office Visit [facility] [address] [place] [address] Leigh Almonte MD [address] [place] [phone] documented as of this encounter Goals Goal Patient Goal Type Associated Problems Recent Progress Patient-Stated? Author Healthy Eating General Yes Ewelina Gray, RD Note: Healthy Eating Goal: Consume 4-6 small meals each day. Confidence level (1= Not very confident; 10 = Very confident): 8 Barriers: None documented as of this encounter Visit Diagnoses Not on filedocumented in this encounter Care Teams Acoustical Tile Drill Press Operator Relationship Specialty Start Date End Date Leigh Almonte MD [address] [place] [phone] PCP - General 06/24/11 02/16/21 Leigh Almonte MD [address] [place] [phone] PCP - General Family Medicine - Primary Care 09/09/23 12/04/24 None, Provider, FIRE WATCHMAN PCP - General 12/05/24 01/30/25 Leigh Almonte MD [address] [place] [phone] PCP - General Family Medicine - Primary Care 01/31/25 [place] [address] 09/09/24 documented as of this encounter
--- OUTSIDE RECORDS SUMMARY | 2025-06-20 19:52 | XMS_ITS | Encounter Summary ---
Author Organization [facility] Address [address] [place] [address] Care Team Providers Care Ski Patrol Name Role Phone Leigh Almonte MD Primary Care Provider Delmy Lynn Roni Unavailable None, Provider PEDIATRIC NURSE PRACTITIONER Primary Care Provider Unavaila ble Leigh Almonte MD Primary Care Provider Reason for Visit * Reason Onset Date Comments Prior Auth, Other (i.e. radiology, etc.) 023 Billing Question 05/24/2023 Encounter Details Date Type Department Care Team (Late st Contact Info) Description 05/24/2023 Telephone [facility] OBGYN Services - [address] [address] Alexandria Lemos MD [address] [place] [address], [address] [place] [phone] Prior Auth, Other (i.e. radiology, etc.); Billing Question Social History Tobacco Use Types Packs/Day Years [...] Master's degree (e.g., MA, MS, Candice, MEd, GLUER MACHINE SETUP OPERATOR, KI) 02/03/2021 Comments No Sex and Gender [...] encounter Miscellaneous Notes * Telephone Encounter - Vickie Mendez - 05/24/2023 3717 EDT Are you calling for gynecological, obstetric, or reproductive care? Fertility Have you been seen here before? Yes If yes, who do you see (Refer to if cant remember)? Aminta Reason for Call as described by patient: Patient calling in to report that her insurance is requiring a PA for the Fragile X and Chromosome Analysis testing ordered by Dr. Lemos. Can call provider call center at [phone] - option 1 and then option 7. Patient was also wondering about egg freezing, as Dr. Lemos had indicated she may be able to do ithere due to medical condition. Patient would like call back to determine costs. What is the best phone number for us to reach you back at? [phone] Does this number have a voicemail, is it ok to leave a detailed message? Yes Vickie Mendez 05/24/2023 14:07 documented in this encounter Plan of Treatment Upcoming Encounters Date Type Department Care Team (Late st Contact Info) Description 10/24/2025 15:15 EST Office Visit [facility] [address] [place] [address] Leigh Almonte MD [address] [place] [phone] 04/10/2026 15:45 EDT Office Visit [address] [address] Leigh Almonte MD [address] [place] [phone] documented as of this encounter Goals Goal Patient Goal Type Associated Problems Recent Progress Patient-Stated? Author Healthy Eating General Yes Ewelina Gray RD Note: Healthy Eating Goal: Consume 4-6 small meals each day. Confidence level (1= Not very confident; 10 = Very confident): 8 Barriers: None documented as of this encounter Visit Diagnoses Not on filedocumented in this encounter Care Teams Ski Patrol Relationship Specialty Start Date End Date Leigh Almonte MD [address] [place] [phone] PCP - General Family Medicine - Primary Care 09/09/23 12/04/24 None, Provider, PEDIATRIC NURSE PRACTITIONER PCP - General 12/05/24 01/30/25 Leigh Almonte MD [address] [place] [phone] PCP - General Family Medicine - Primary Care 01/31/25 [place] [address] 09/09/24 documented as of this encounter
--- OUTSIDE RECORDS SUMMARY | 2025-06-20 19:52 | XMS_ITS | Encounter Summary ---
Author Organization [facility] Address [address] [place] [address] Care Team Providers Care E Tailer Name Role Phone Leigh Almonte MD Primary Care Provider Delmy Lynn Unavailable None, Provider CHASER TAR Primary Care Provider Unavaila ble Leigh Almonte MD Primary Care Provider Reason for Visit * Reason Onset Date Comments Medications Refill 05/02/2023 Encounter Details Date Type Department Care Team (Late st Contact Info) Description 05/02/2023 Refill [facility] Dermatology 3rd Floor [facility] [address] [place], [place] [address] Kvng Lee PA-C [address] [place] [phone] Medications Refill Social History Tobacco Use [...] place to sleep or slept in a alf (including now)? No 04/09/2023 Interpersonal Safety Answer [...] Master's degree (e.g., MA, MS, Candice, MEd, TRUCK SAFETY INSPECTOR, KI) 02/03/2021 Comments No Sex and Gender [...] 06/03/2015 11:17 EDT documented in this encounter Ordered Prescriptions Prescription Sig Dispense Quantity Refills Last Filled Start Date End Date ivermectin 1 % cream Apply topically to affected area daily. 30 g 5 05/04/2023 documented in this encounter Miscellaneous Notes * Telephone Encounter - Dora Beltran MA - 05/04/2023 0914 EDT Medication: ivermectin 1 % cream ?? Dx: Rosacea ?? Last OV: 7.31.23 Next OV: 8.5.23 ?? Last refill: 730.21 Please review and fill if appropriate, thank you! Dora * Telephone Encounter - Tri Valdez - 05/02/2023 1607 EDT Medication: ivermectin 1 % cream Dx: Rosacea Last OV: 7.31.23 Next OV: 8.5.23 Last refill: 7.30.21 PA is not required for this medication. Patient would like this sent to [facility] in [place]. (on file) documented in this encounter Plan of Treatment Upcoming Encounters Date Type Department Care Team (Late st Contact Info) Description 10/24/2025 15:15 EST Office Visit [facility] [address] [place] [address] Leigh Almonte MD [address] [place] [phone] 04/10/2026 15:45 EDT Office Visit [facility] [address] [place] [address] Leigh Almonte MD [address] [place] [phone] documented as of this encounter Goals [...] Discontinue Reason Start Date End Da te ivermectin 1 % cream Apply topically to affected area daily. Reorder 04/17/2021 05/02/2023 documented as of this encounter Care Teams E Tailer Relationship Specialty Start Date End Date Leigh Almonte MD [address] [place] [phone] PCP - General Family Medicine - Primary Care 09/09/23 12/04/24 None, Provider, CHASER TAR PCP - General 12/05/24 01/30/25 Leigh Almonte MD [address] [place] [phone] PCP - General Family Medicine - Primary Care 01/31/25 [place] [address] 09/09/24 documented as of this encounter
--- OUTSIDE RECORDS SUMMARY | 2025-06-20 19:52 | XMS_ITS | Encounter Summary ---
Author Organization [facility] Address [address] [place] [address] Care Team Providers Care Sawing And Assembly Supervisor Name Role Phone Leigh Almonte MD Primary Care Provider Delmy Lynn Unavailable None, Provider COMMERCIAL ACCOUNT MANAGER Primary Care Provider Unavaila Leigh Oneil MD Primary Care Provider Encounter Details Date Type Department Care Team (Late st Contact Info) Description 11/24/2023 Documentation Visit [facility] Pulmonology & Critical Care - [facility] [address] [place] [address] Kris De Guzman Social History Tobacco Use Types Packs/Day Years [...] Record ed How often does anyone, inclu ding family, hit, punch or physically hurt you? Never 04/09/2023 How often does anyone, inclu ding family, insult, scream, curse or threaten to hurt you? Never 04/09/2023 Education Answer Date Recorded What is the highest level of school you have completed or the highest degree you have received? Master's degree (e.g., MA, MS, Candice, MEd, PARK MAINTAINER, KI) 02/03/2021 Comments No Sex and Gender [...] 06/03/2015 11:17 EDT documented in this encounter Plan of Treatment Upcoming Encounters Date Type Department Care Team (Late st Contact Info) Description 10/24/2025 15:15 EST Office Visit [facility] [address] [place] [address] Leigh Almonte MD [address] [place] [phone] 04/10/2026 15:45 EDT Office Visit [address] [address] Leigh Almonte MD [address] [place] [phone] documented as of this encounter Goals Goal Patient Goal Type Associated Problems Recent Progress Patient-Stated? Author Healthy Eating General Yes Ewelina Gray, RD Note: Healthy Eating Goal: Consume 4-6 small meals each day. Confidence level (1= Not very confident; 10 = Very confident): 8 Barriers: None documented as of this encounter Visit Diagnoses Not on filedocumented in this encounter Care Teams Sawing And Assembly Supervisor Relationship Specialty Start Date End Date Leigh Almonte MD [address] [place] [phone] PCP - General Family Medicine - Primary Care 09/09/23 12/04/24 None, Provider, COMMERCIAL ACCOUNT MANAGER PCP - General 12/05/24 01/30/25 Leigh Almonte MD [address] [place] [phone] PCP - General Family Medicine - Primary Care 01/31/25 [place] [address] 09/09/24 documented as of this encounter
--- OUTSIDE RECORDS SUMMARY | 2025-06-20 19:52 | XMS_ITS | Encounter Summary ---
Author Organization [facility] Address [address] [place] [address] Care Team Providers Care Arch Support Maker Name Role Phone Leigh Almonte MD Primary Care Provider Leah Delmy Tamayo Unavailable None, Provider VICE PRESIDENT TAX Primary Care Provider Unavaila ble Leigh Almonte MD Primary Care Provider Reason for Visit * Reason Onset Date Comments Other 10/07/2022 Encounter Details Date Type Department Care Team (Late st Contact Info) Description 10/07/2022 Telephone [facility] Dermatology [address] [facility] [address] [place], [place] [address] Mary Smith, RN [address] [place], [place] [id number] Other Social History Tobacco Use Types Packs/Day Years [...] slept in a fci (including now)? No 03/30/2022 Interpersonal Safety Answer [...] Master's degree (e.g., MA, MS, Candice, MEd, ALLERGIST, KI) 02/03/2021 Comments No Sex and Gender [...] encounter Miscellaneous Notes * Telephone Encounter - Marcia Remy - 10/07/2022 1504 EST Patient wanted you to know that she rescheduled her appt. To a later date for her peel, because shewas still feeling sensitive since her last appt. She now has an appt. On 11/26/22 at 8:30 am documented in this encounter Plan of Treatment Upcoming Encounters Date Type Department Care Team (Late st Contact Info) Description 10/24/2025 15:15 EST Office Visit [address] [place] [address] Leigh Almonte MD [address] [place] [phone] 04/10/2026 15:45 EDT Office Visit [facility] [address] [place] [address] Leigh Almonte MD [address] [place] [phone] documented as of this encounter Goals Goal Patient Goal Type Associated Problems Recent Progress Patient-Stated? Author Healthy Eating General Yes Ewelina Gray, RD Note: Healthy Eating Goal: Consume 4-6 small meals each day. Confidence level (1= Not very confident; 10 = Very confident): 8 Barriers: None documented as of this encounter Visit Diagnoses Not on filedocumented in this encounter Care Teams Arch Support Maker Relationship Specialty Start Date End Date Leigh Almonte MD [address] [place] [phone] PCP - General Family Medicine - Primary Care 09/09/23 12/04/24 None, Provider, VICE PRESIDENT TAX PCP - General 12/05/24 01/30/25 Leigh Almonte MD [address] [place] [phone] PCP - General Family Medicine - Primary Care 01/31/25 [place] [address] 09/09/24 documented as of this encounter
--- OUTSIDE RECORDS SUMMARY | 2025-06-20 19:52 | XMS_ITS | Encounter Summary ---
Author Organization [facility] Address [address] [place] [address] Care Team Providers Care Rubber Block Layer Name Role Phone Leigh Almonte MD Primary Care Provider Leigh Almonte MD Primary Care Provider Delmy Lynn Unavailable None, Provider PRODUCER ASSISTANT Primary Care Provider Unavaila ble Leigh Almonte MD Primary Care Provider Reason for Visit * Reason Onset Date Comments Medications Refill 01/14/2014 Encounter Details Date Type Department Care Team (Late st Contact Info) Description 01/14/2014 Refill [facility] 3rd Floor [facility] [address] [place] [address] Kvng Lee PA-C [address] [place] [phone] Medications Refill Social History Tobacco Use [...] 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 Patient is not and/or . Kvng Lee PA-C 01/14/2014 * Telephone Encounter - Ruthy Valdez - 01/14/2014 1545 EDT Patient stated she is going to be leaving for [place] in a few weeks and would like enough medication while she is gone. Please call patient once medication has been prescribed. documented in this encounter Plan of Treatment Upcoming Encounters Date Type Department Care Team (Late st Contact Info) Description 10/24/2025 15:15 EST Office Visit [address] [phone] Leigh Almonte MD [address] [place] [phone] 04/10/2026 15:45 EDT Office Visit [address] [address] Leigh Almonte MD [address] [place] [phone] documented as of this encounter Visit Diagnoses Not on filedocumented in this encounter Discontinued Medications Medication Sig Discontinue Reason Start Date End Da te spironolactone (ALDACTONE) 25 mg tablet sig 2 tabs PO qam and 1 tab PO qhs Reorder 10/04/2013 01/14/2014 documented as of this encounter Care Teams Rubber Block Layer Relationship Specialty Start Date End Date Leigh Almonte MD [address] [place] [phone] PCP - General 06/24/11 02/16/21 Leigh Almonte MD [address] [place] [phone] PCP - General Family Medicine - Primary Care 09/09/23 12/04/24 None, Provider, PRODUCER ASSISTANT PCP - General 12/05/24 01/30/25 Leigh Almonte MD [address] [place] [phone] PCP - General Family Medicine - Primary Care 01/31/25 [place] [address] 09/09/24 documented as of this encounter
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
--- OUTSIDE RECORDS SUMMARY | 2025-06-20 19:52 | XMS_ITS | Encounter Summary ---
Author Organization [facility] Address [address] [place] [address] Care Team Providers Care Auto Parts Counter Person Name Role Phone Leigh Almonte MD Primary Care Provider Leigh Almonte MD Primary Care Provider Delmy Lynn Unavailable None, Provider AUDITING MANAGER Primary Care Provider Unavaila ble Leigh Almonte MD Primary Care Provider Reason for Visit * Reason Comments Other Encounter Details Date Type Department Care Team (Late st Contact Info) Description 03/30/2016 Refill [facility] 5th Floor [facility] [address] [place] [address] Kvng Lee, PARuss [address] [place] [address] [place] [phone] Other Social History Tobacco Use Types Packs/Day [...] 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 180 Tab 1 03/30/2016 10/21/2016 documented in this encounter Miscellaneous Notes * Telephone Encounter - Kvng Lee PA-C - 03/30/2016 1616 EDT Prescription for spironolactone 50 mg tab sig I tab PO BID x 90 days, #180 with 1 refills. Kvng Lee PA-C 03/30/2016 * Telephone Encounter - La May A.E. - 03/30/2016 1320 EDT Medication: Spironolactone Diagnosis: Female hormonal acne vulgaris Last Office Visit: 02/03/16 Last Refill: First requested refill Next Office Visit: 09/01/16 Last PPD: n/a Last Labs: n/a documented in this encounter Plan of Treatment Upcoming Encounters Date Type Department Care Team (Late st Contact Info) Description 10/24/2025 15:15 EST Office Visit [facility] Medicine [facility] [address] [place] [address] Leigh Almonte MD [address] [place] [phone] 04/10/2026 15:45 EDT Office Visit [facility] [address] [place] [address] Leigh Almonte MD [address] [place] [phone] documented as of this encounter Goals [...] Start Date End Da te spironolactone (ALDACTONE) 50 mg tablet Take 1 Tab by mouth 2 times daily Sig 1 tab PO BID Reorder 06/03/2015 03/30/2016 documented as of this encounter Care Teams Auto Parts Counter Person Relationship Specialty Start Date End Date Leigh Almonte MD [address] [place] [phone] PCP - General 06/24/11 02/16/21 Leigh Almonte MD [address] [place] [phone] PCP - General Family Medicine - Primary Care 09/09/23 12/04/24 None, Provider, AUDITING MANAGER PCP - General 12/05/24 01/30/25 Leigh Almonte MD [address] [place] [phone] PCP - General Family Medicine - Primary Care 01/31/25 [place] [address] 09/09/24 documented as of this encounter
[2025-06-20 20:01] LABS: COVID-19 Test Negative (Negative); IDNOW Serial# 152EDE1D; IDNOW Serial# 16C4AD1C
[2025-06-20 20:02] LABS: Influenza B2 Negative (Negative)
[2025-06-20 20:43] LABS: D Dimer High Sensitivity 550 NG/ML
[2025-06-20 22:44] VITALS: BP 126/79; PULSE 105; RESP 17; TEMP 36.8; O2SAT 100
--- NOTE | 2025-06-20 23:21 | PC.NURSE ---
took over care at 23:00 from JAYSON Sim Iv place in left AC.
--- NOTE | 2025-06-20 23:24 | PC.NURSE ---
notified Terri CT, pt has line and is all set.
--- NOTE | 2025-06-21 00:12 | PC.NURSE ---
pt still awaiting CT Scan,
--- NOTE | 2025-06-21 01:39 | PC.NURSE ---
pt oob to bathroom with a steady gait. pt awaiting for ct scan.
--- NOTE | 2025-06-21 02:34 | PC.NURSE ---
pt back from ct scan.
[2025-06-21] MEDS: iohexoL 350 MG/ML 100 ML INFUS..BTL 65 ML IV (02:36)
--- NOTE | 2025-06-21 02:37 | PC.NURSE ---
pt given a pillow for comfort.
[2025-06-21 02:44] VITALS: BP 110/67; PULSE 99; RESP 15; TEMP 36.6; O2SAT 100
--- NOTE | 2025-06-21 03:28 | PC.NURSE ---
awaiting ct-a results.
[2025-06-21 04:20] VITALS: BP 110/67; PULSE 99; RESP 15; TEMP 36.6; O2SAT 100
--- NOTE | 2025-06-21 04:20 | PC.NURSE ---
Iv removed, reviewed discharge instructions with pt. pt verbalized understanding, no sign of distress upon discharge.
== END 2025-06-21 04:21 | disposition home or self-care (01) ==
PROVIDERS: Physician Assistant; Emergency Provider Emergency Medicine Emergency Medical Services
DX: R07.89 Other chest pain (principal); R94.31 Abnormal electrocardiogram [ECG] [EKG]; R06.02 Shortness of breath; R07.1 Chest pain on breathing; R10.22 Pelvic and perineal pain left side; R60.0 Localized edema; Z11.52 Encounter for screening for COVID-19; Z79.899 Other long term (current) drug therapy
CPT/HCPCS: 36415; 71045; 71275; 80053; 83880; 84484; 84702; 85025; 85379; 87502; 87635; 93005; 93970; 99285; Q9967

== ENCOUNTER → 2025-06-20 18:01 | Outpatient (BNV) | payer OTHER, SELFPAY | PROVIDERS: Emergency Provider Emergency Medicine Emergency Medical Services; Visit Provider Internal Medicine | DX: R07.89 Other chest pain (principal) | CPT/HCPCS: 93010 ==

== ENCOUNTER → 2025-06-20 18:30 | Outpatient (BNV) | payer SELFPAY | PROVIDERS: Emergency Provider Emergency Medicine Emergency Medical Services; Visit Provider Radiology Diagnostic Radiology | DX: Z03.89 Encounter for observation for other suspected diseases and conditions ruled out (principal); J18.9 Pneumonia, unspecified organism | CPT/HCPCS: 71045; 93970 ==

== ENCOUNTER → 2025-06-21 00:02 | Outpatient (BNV) | payer OTHER, SELFPAY | PROVIDERS: Emergency Provider Emergency Medicine Emergency Medical Services; Visit Provider General Practice | DX: R07.89 Other chest pain (principal) | CPT/HCPCS: 71275 ==